=== PATIENT | female | born 1935 | race Caucasian/White ===

== ENCOUNTER → 2023-09-20 10:30 | Outpatient (REF) | payer MEDICARE, OTHER, SELFPAY | LOC: HWRCS 10:30 | PROVIDERS: ATTENDING PHYSICIAN Internal Medicine Cardiovascular Disease; FAMILY PHYSICIAN Internal Medicine | DX: I35.0 Nonrheumatic aortic (valve) stenosis (principal) | CPT/HCPCS: 93306 ==

== ENCOUNTER 2024-12-24 08:05 | Inpatient (IN) | payer MEDICARE, OTHER, SELFPAY ==
[2024-12-22] VITALS (15 sets, daily range): BP systolic 87–155; BP diastolic 44–86; BMI 26.4; BMI 27.4
[2024-12-22 07:26] LABS: Hematocrit 38.9 % (37.0-47.0); Hemoglobin 13.3 g/dL (12.0-16.0); Mean Corp Hgb Conc. 34.2 g/dL (33.0-37.0); Mean Corpuscular Volume 84.6 fL (81.0-99.0); Nucleated Red Blood Cells % 0 %; Platelet Count 153 10^3/uL (130-400); Red Cell Dist. Width 13.2 % (11.5-14.5)
[2024-12-22] MEDS: NSS 1000 IV (07:44)
[2024-12-22 07:45] LABS: ALT (SGPT) 17 U/L (0-35); AST (SGOT) 21 U/L (14-36); Albumin 4.7 g/dl (3.5-5.0); Alkaline Phosphatase 76 U/L (38-126); Blood Urea Nitrogen 25 mg/dl (7-17); Calcium 10.1 mg/dl (8.4-10.2); Carbon Dioxide 16 mmol/L (22-30); Chloride 111 mmol/L (98-107); Estimated Creatinine Clearance 35 ml/min; Glucose 158 mg/dl (70-99); Potassium 4.2 mmol/L (3.5-5.1); Sodium 139 mmol/L (135-145); Total Protein 7.3 g/dl (6.3-8.2); eGFR 54.53
[2024-12-22] MEDS: VALIUM INJECTION 2 MG IV (07:45)
[2024-12-22] MEDS: ZOFRAN 4 MG IV (07:45)
--- NOTE | 2024-12-22 07:59 | ED.GENMED ---
History of Present Illness
General
Chief Complaint: Weakness
Time Seen by Provider: 12/22/24 07:05
History of Present Illness
History of Present Illness:
89-year-old female with history of hypertension, hyperlipidemia, coronary artery disease, COPD, and chronic renal insufficiency presents to the emergency department for evaluation of abrupt onset of vertigo associated with vomiting beginning upon
awakening at approximately 3 AM today. Initially she states that symptoms 'woke her up from sleep' however after further questioning she states that she woke up and attempted to roll to her right side to the out of bed when the symptoms struck.
She states opening her eyes worsens her dizziness. Has been unrelenting since onset. No diarrhea, chest pain, or shortness of breath. No recent illnesses. Was well when going to bed last night
Past History
Past History
ED Past Medical History: CAD
ED Past Surgical History: Cardiac (cath w/ one stent)
Social History
Tobacco: Non-smoker
Living: assisted living
Review of Systems
Review of Systems
Allergies reviewed?: Yes
All Other Systems: ROS reviewed and negative except as documented in HPI and ROS
Phy Exam
Physical Exam
Physical Exam:
GEN: Well appearing, NAD, WDWN
HEENT: Oral mucosa moist, no scleral icterus, no nasal congestion
Cardiac: Regular rate and rhythm, no murmurs
Lung: No respiratory distress, no tachypnea
MSK: No gross deformity or injuries
Skin: Good color, no pallor or jaundice, no rashes
Neuro: AO x3; CN II-XII grossly intact. Globally weak x 4 extremities however symmetric with no focal deficit. Unable to appreciate nystagmus however patient refused to keep eyes open during head movement
Psych: Calm, cooperative
Course
Orders/Labs/Results
Orders:
Orders
12/22/24 07:03
Electrocardiogram (*1) Urgent
Reason for Study: Fatigue / Weakness
EKG- Treatment ONCE
12/22/24 07:18
CMP [Comprehensive Metabolic Panel] Urgent
Complete Blood Count/With Diff Urgent
12/22/24 07:31
0.9% Sodium Chloride 1000 ml [Nss] 1,000 ml IV BOLUS
Ondansetron Injectable [Zofran] 4 mg IV NOW STA
diazePAM [Valium Injection] 2 mg IV NOW STA
12/22/24 08:02
CT Head W/o Iv Contrast Urgent
Comment:
Reason For Exam: dizziness
12/22/24 11:51
Admit/Transfer Patient As Directed
Co-Sign Provider:
Level of Care: Observation services
Assign to:: Telemetry
Physician / Group: HOSPITALIST group; Claudia
Diagnosis: Dizziness likely due to peripheral vertigo
Reason for Telemetry: CVA/TIA
Date to Stop Telemetry: 12/25/24
Time to Stop Telemetry: 11:00
Reason for Hospitalization: Dizziness likely due to peripheral vertigo
Expected length of stay greater than two midnights?: Yes
ELOS- Estimated Length of Stay in days: 3
12/22/24 11:52
PRN Pain Medication Management As Directed
May give lesser potent ordered pain med per pt: Yes
preference::
Protocol:: Medication orders for pain may be administered in a
manner that supports deferring to patient preference
when the pt is:
- Requesting an ordered lesser potent pain medication.
Least to most potent pain medications are defined
as: acetaminophen < NSAID < tramadol < opioids
(morphine, oxycodone, hydromorphone).
- Requesting a lesser dose of the same medication IF
ORDERED.
- Requesting a less intrusive route of administration
if both routes are prescribed by the provider (PO <
IV).
12/22/24 12:00
Code Status As Directed
Resuscitation Status: Full Code
12/22/24 12:09
PT Consult [Pt Eval And Treat] Routine
Activity Level: Ambulate
12/22/24 12:16
NEUROLOGY CONSULT Routine
Consulting Provider: González Argueta
Was physician already notified: Yes
12/22/24 13:00
Meclizine [Antivert] 25 mg PO Q8
12/25/24 11:00
DC Protocol for Telemetry ONCE
Abnormal Lab Results
12/22/24
07:18
MPV 10.6 H fL
(7.4-10.4)
Absolute Neuts (auto) 9.2 H 10^3/uL
(1.4-6.5)
Absolute Lymphs (auto) 1.1 L 10^3/uL
(1.2-3.4)
Neutrophils % 85.4 H %
(42.2-75.2)
Lymphocytes % 9.8 L %
(20.5-51.1)
Chloride 111 H mmol/L
(98-107)
Carbon Dioxide 16 L mmol/L
(22-30)
BUN 25 H mg/dl
(7-17)
Glucose 158 H mg/dl
(70-99)
12/22/24 07:18
12/22/24 07:18
Vital Signs
Initial and Last Documented VS:
Initial Vital Signs
Temp Pulse Resp Pulse Ox
97.7 F 54 17 100
12/22/24 06:43 12/22/24 06:43 12/22/24 06:43 12/22/24 06:43
Last Documented Vital Signs
Temp Pulse Resp BP Pulse Ox
97.7 F 65 21 135/62 95
12/22/24 06:49 12/22/24 13:15 12/22/24 13:15 12/22/24 13:00 12/22/24 12:45
MDM/Problems Addressed
MDM/Problems Addressed:
89-year-old female presenting with vertiginous dizziness that began upon awakening abdominal pain this morning. On exam I am unable to appreciate obvious nystagmus however exam is challenging as patient is unable to keep her eyes open when symptoms
are severe. We did treat with IV diazepam initially which improved symptoms at rest however when attempting to stand the patient became quite vertiginous. She was also noted to be orthostatic during this time. Given the clear positional nature
and negative head CT I do not suspect acute CVA particularly given lack of associated midbrain symptoms such as visual changes, rather this is likely a peripheral vertigo given that the patient describes symptoms predominantly with rightward head
movement and a previous sensation of 'ear popping' in the right ear over the past month. Given her advanced age and the fact that she lives independently we will admit to the hospitalist service for further evaluation management
Comment
Comment:
EKG independently interpreted by me shows a sinus bradycardia at a rate of 56, significant patient motion artifact limits interpretation particularly in the anterior leads however no gross ST changes are noted
*Pulse Oximetry
SaO2: 99
Oxygen Mode of Delivery: Room air
Patient hypoxic: no
*Critical Care Note
Total Time (30-74mins, 75-104mins- exclusive of procedures): Not Applicable
ED Attending Note
-
Portions of this chart may have been created with voice recognition software.� Occasional wrong word or��sound alike� substitutions may have occurred due to the inherent limitations of voice recognition software.
Discharge Plan
Departure
Patient Disposition: Admit
Date of Disposition: 12/22/24
Time of Disposition: 10:10
Admit to: Med/Surg
Presentation/result/management discussed w/ accepting MD/DO: Hospitalist
Discharge Problem:
Vertigo
Interventions
Interventions:
*Risk Screen - Suicide Last Done: 12/22/24 06:50
*General Assessment Last Done: 12/22/24 06:50
*Neglect/Abuse Screening Last Done: 12/22/24 06:52
*ED- Fall Risk Assessment Last Done: 12/22/24 06:52
*ED COVID-19 Vaccine History Last Done: 12/22/24 06:53
ED- Cardiac Assessment Last Done: 12/22/24 06:54
ED- Neurological Assessment Last Done: 12/22/24 06:55
ED- Pulmonary Assessment Last Done: 12/22/24 06:56
--- NOTE | 2024-12-22 10:44 | W.PN.UPDATE ---
Update Note
Progress Note Update
I personally performed a history and physical exam of the patient and discussed management with the resident. I reviewed the resident's note and agree with the documented findings and plan of care HPI/CC.
89-year-old female presents with a chief complaint of vertigo. She had sudden onset vertigo at 0300 today. She had associated vomiting and ambulatory dysfunction.
Gen: NAD, AAOx3.
Eyes: EOMI, PERRLA, no scleral icterus. L-blackwell nystagmus on L-blackwell horizontal gaze
Neck: supple.
CV: RRR, +S1/S2, no m/r/g.
Resp: CTAB, no rales, wheezes, or rhonchi.
Abd: +BS, soft, NT, ND
Skin: No rashes.
Neuro: CN 2-12 intact, non-focal.
Psych: Normal mood and affect.
Lab Results
12/22/24
07:18
WBC 10.8
RBC 4.60
Hgb 13.3
Hct 38.9
MCV 84.6
MCH 28.9
MCHC 34.2
RDW 13.2
Plt Count 153
MPV 10.6 H
Abs Immat Gran (auto) 0.0
Absolute Neuts (auto) 9.2 H
Absolute Lymphs (auto) 1.1 L
Absolute Monos (auto) 0.4
Absolute Eos (auto) 0.0
Absolute Basos (auto) 0.1
Immature Gran % 0.3
Neutrophils % 85.4 H
Lymphocytes % 9.8 L
Monocytes % 3.4
Eosinophils % 0.4
Basophils % 0.7
Nucleated RBC % 0
Sodium 139
Potassium 4.2
Chloride 111 H
Carbon Dioxide 16 L
BUN 25 H
Creatinine 1.0
Estimated Creat Clear 35
eGFR 54.53
Glucose 158 H
Calcium 10.1
Total Bilirubin 0.8
AST 21
ALT 17
Alkaline Phosphatase 76
Total Protein 7.3
[address] brain:
1. No CT evidence for acute intracranial hemorrhage or transcortical infarct.
2. Moderate diffuse cerebral and cerebellar volume loss.
3. 4 mm chronic lacunar infarct in the head of the left caudate nucleus.
Acute Vertigo:
-supportive care with IVFs (wiht HCO3-), meclizine
-PT for [place]-Hallpike with Raisa if indicated
-central etiology must be ruled out, check MRI brain, c/s neuro
-monitor on tele until MRI brain completed
-non-AG met acidosis, likely due to vomiting
Other problems (cont home meds):
CAD s/p stents
HLD with statin intolerance (myalgias)
Essential HTN
h/o breast CA s/p lumpectomy at [facility] 2012
DJD
--- NOTE | 2024-12-22 11:15 | HPS.HSE ---
Family Physician
-
Family Physician: Dr. Yolanda Braswell
Chief Complaint
-
Dizziness
History of Present Illness
This is a 89-year-old female with a past medical history of hypertension, hyperlipidemia, coronary artery disease, COPD and chronic renal insufficiency who presents to the ED with dizziness. Patient had sudden onset dizziness upon awakening at 3 AM
today when she rolled to her right side to get out of bed to use the restroom. She states that her symptoms ' woke her up from her sleep.' Patient had associated nausea and 4 episodes of vomiting. Dizziness is worsened when she opens her eyes. She
felt 'cold and was shivering' at the time, but that has resolved since. No vomiting after arrival to ED, but does have intermittent nausea. She denies diarrhea, chest pain, shortness of breath or any other symptoms. No history of recent illness.
She has never had similar symptoms in the past before. [facility]
Medical History
Past Medical History
Past Medical History: Reports CAD, COPD and HTN
Additional Past Medical History:
Adrenal insufficiency, hyperlipidemia
Past Surgical History: Reports Other
Additional Past Surgical History:
Right knee replacement 2014, right hip replacement 2009, right sided lumpectomy on 2012.
Social History
Tobacco: Former Smoker (Quit at 51.)
Alcohol: Occasional
Personal:
Living: Other ([facility]
Employment: Retired
Family History
Family History: CAD (Paternal side) and Cancer (Pancreatic cancer in sister, lung cancer in brother.)
Allergies / Home Medications
Allergies reflects when Allergies were last updated in [employer].
Home Medications with original date entered in [employer]
Allergy/Medication List:
Allergies
Allergy/AdvReac Type Severity Reaction Status Date / Time
Sulfa (Sulfonamide Allergy Rash, Verified 11/20/21 10:35
Antibiotics) vomiting
suture Allergy Rash, Verified 11/20/21 10:35
infection
acetaminophen (From Percocet) AdvReac Nausea / Verified 11/20/21 10:35
Vomiting
oxycodone (From Percocet) AdvReac Nausea / Verified 11/20/21 10:35
Vomiting
Mfvueld-UMM-AsT Reductase AdvReac Myalgias Verified 11/20/21 10:35
Inhibitor
Home Medications: confirmed on 12/22/24
Vitamin D 1 tab PO DAILY Supplement 09/06/21
aspirin 81 mg tablet,delayed release 1 tab PO HS Blood clot prevention/tx 09/06/21
Calcium 250 mg (as phosphate)-vit D3 5 mcg (200 unit) chewable tablet 1 tab PO BID Supplement 09/06/21
Losartan 25 mg tablet 25 tab PO morning Blood pressure 09/06/21
Vitamin B complex 1 tab PO DAILY Supplement 09/06/21
Metoprolol succinate 25 mg tablet,extended release 24 hr 12.5 mg (1/2 x 25 mg) PO QPM DAILY 09/08/21
Rosuvastatin 10 mg tablet 10 mg PO QPM 09/08/21
Isosorbide mononitrate 30 mg extended release QPM
Review of Systems
-
History Source: Patient
Constitutional: Reports No Symptoms
EENT: Reports No Symptoms
Respiratory: Reports No Symptoms
Cardiac: Reports No Symptoms
Abdomen/GI: Reports Nausea and Vomiting
: Reports No Symptoms
Musculoskeletal: Reports No Symptoms
Skin: Reports No Symptoms
Neurological: Reports Dizzy
Endocrine: Reports No Symptoms
Hematologic/Lymphatic: Reports No Symptoms
Psych: Reports No Symptoms
Physical Exam
Vital Signs
Vital Signs
Temp Pulse Resp BP Pulse Ox
97.7 F 55 18 148/53 99
12/22/24 06:49 12/22/24 10:15 12/22/24 10:15 12/22/24 10:00 12/22/24 10:15
Physical Exam
General: Well Developed, Well Nourished, No Apparent Distress, Comfortable and Conversant
HEENT: NormoCephalic, Anicteric, Moist mucous membranes, Atraumatic, PERRLA and Other (Extraocular muscles intact, leftward nystagmus on leftward horizontal gaze)
Respiratory: Clear and Non Labored Respirations
Cardiac: S1/S2 and Regular Rhythm
GI: Soft, Non Tender, Non Distended, Normal Bowel Sounds and No Hepatosplenomegaly
Genito-urinary: Deferred by me
Musculoskeletal: No Clubbing, No Cyanosis and No Edema
Skin: Warm and Dry
Neuro: Awake, AO x 3 and No Motor Deficits
Psych: Calm and Intact Judgment/Insight
Laboratory Results
-
12/22/24 07:18
12/22/24 07:18
Laboratory Results
Total Bilirubin 0.8 mg/dl (0.2-1.3) 12/22/24 07:18
AST 21 U/L (14-36) 12/22/24 07:18
ALT 17 U/L (0-35) 12/22/24 07:18
Alkaline Phosphatase 76 U/L (38-126) 12/22/24 07:18
Data Reviewed
-
CT Scan: Report Reviewed by me and Discussed with Physician
Lab Data: Labs Reviewed by me and Discussed with Physician
Old Records: Reviewed
Impression/Plan
-
89-year-old female with a past medical history of hypertension, hyperlipidemia, coronary artery disease, COPD and chronic renal insufficiency who presents to the ED with dizziness. Patient had sudden onset dizziness upon awakening at 3 AM 12/22/24
when she rolled to her right side to get out of bed to use the restroom. She states that her symptoms ' woke her up from her sleep.' Patient had associated nausea and 4 episodes of vomiting. Dizziness is worsened when she opens her eyes.
Assessment/plan:
#Acute vertigo
#Metabolic acidosis, likely due to vomiting
�Admit for observation on telemetry until MRI brain completed
�Concern for central etiology: Will order MRI brain.
�Continue supportive care with sodium bicarbonate, meclizine
�Neurology consulted.
�PT consult for Carmelina with Raisa if indicated.
�None anion gap metabolic acidosis. Will monitor.
#Coronary artery disease, status post stents
#Hyperlipidemia with statin intolerance, history of myalgias
#Essential hypertension
�Continue aspirin 81 Mg daily, losartan 25 Mg daily, metoprolol 12.5 Mg daily, isosorbide mononitrate 30 mg.
#History of breast cancer status postlumpectomy 2012
#Degenerative joint disease
DVT prophylaxis: SCDs
CODE STATUS: DNR
--- NOTE | 2024-12-22 12:41 | CM ---
CM reviewed chart and met with pt bedside in ED. Lives alone in [place] apartment at [facility].
Independent in ADLs, personal care and ambulation at baseline, uses RW. Also has cane.
Confirms prescription coverage.
No hx VN or SNF
PCP: Yolanda Braswell
Pharmacy: [facility] at [facility]
Anticipate discharge home, CM will continue to follow for any discharge planning needs.
--- NOTE | 2024-12-22 13:27 | CON.NEURO ---
Neuro Assessment/Plan
Assessment
89 year old woman, vertigo due to left vestibular neuritis, treatment is 5 days of steroids, I will do solumedrol 250 BID while she's here and finish with prednisone 50/day unless/until vertigo is resolved.
right facial droop, slightly worsening leg weakness, suspect that this is a stroke which is independent of the vertigo.
likely acute/subacute given that the facial droop quite noticable, but of unclear duration; will load plavix 300 + 21 days of plavix; continue asa 81 and rosuvastatin 40
Consultation
Order
Date of Consultation: 12/22/24
Requesting Provider: Claudia
Reason for Consult: vertigo
Subjective/Objective
Subjective Data
Date of Service: December 22, 2024
from h&p:
This is a 89-year-old female with a past medical history of hypertension, hyperlipidemia, coronary artery disease, COPD and chronic renal insufficiency who presents to the ED with dizziness. Patient had sudden onset dizziness upon awakening at 3 AM
today when she rolled to her right side to get out of bed to use the restroom. She states that her symptoms ' woke her up from her sleep.' Patient had associated nausea and 4 episodes of vomiting. Dizziness is worsened when she opens her eyes. She
felt 'cold and was shivering' at the time, but that has resolved since. No vomiting after arrival to ED, but does have intermittent nausea. She denies diarrhea, chest pain, shortness of breath or any other symptoms. No history of recent illness.
She has never had similar symptoms in the past before. She lives in a senior independent living facility ([facility]
I noted right facial droop she says is new. right arm weakness from ortho shoulder problem, chronic. right leg weakness, chronic hip problem, shes says a little worse than baseline.
she agrees that vertigo worse with right gaze, and relieved by left gaze. no tinnitus.
Objective Data
Vital Signs
Temp Pulse Resp BP Pulse Ox
36.5 C 65 21 135/62 95
12/22/24 06:49 12/22/24 13:15 12/22/24 13:15 12/22/24 13:00 12/22/24 12:45
Lab Results
12/22/24 07:18
12/22/24 07:18
Sodium 139 mmol/L (135-145) 12/22/24 07:18
Potassium 4.2 mmol/L (3.5-5.1) 12/22/24 07:18
BUN 25 mg/dl (7-17) H 12/22/24 07:18
Glucose 158 mg/dl (70-99) H 12/22/24 07:18
Calcium 10.1 mg/dl (8.4-10.2) 12/22/24 07:18
Patient Allergies
Sulfa (Sulfonamide Antibiotics) Allergy (Verified 11/20/21 10:35)
Rash, vomiting
suture Allergy (Verified 11/20/21 10:35)
Rash, infection
acetaminophen (From Percocet) Adverse Reaction (Verified 11/20/21 10:35)
Nausea / Vomiting
oxycodone (From Percocet) Adverse Reaction (Verified 11/20/21 10:35)
Nausea / Vomiting
[id number] Reductase Inhibitor Adverse Reaction (Verified 11/20/21 10:35)
Myalgias
Physical Exam
-
awake, alert, interactive
VFF, constant right beating nystagmus regardless of gaze direction
right facial droop
right arm and leg slight down drift
Medications
-
Active Medications
Generic Name Dose Route Start Last Admin
Trade Name Freq PRN Reason Stop Dose Admin
Meclizine HCl 25 mg 12/22/24 13:00
Meclizine 25 Mg Tablet PO 01/19/25 12:59
Q8 SHERRY
Methylprednisolone Sodium Succinate 250 mg 12/22/24 13:25
Methylprednisolone Pf 125 Mg/2 Ml Vial IV 12/27/24 13:24
BID SHERRY
Home Medications
�Medication �Instructions �Recorded
aspirin 81 mg tablet,delayed 1 tab PO HS Blood clot 09/06/21
release prevention/tx
losartan 25 mg tablet 25 tab PO DAILY Blood pressure 09/06/21
vitamin B complex 1 tab PO DAILY Supplement 09/06/21
acetaminophen 500 mg tablet 500 mg PO DAILYPRN PRN mild pain 12/22/24
calcium carbonate (Calcium 600) 600 mg PO DAILY 12/22/24
carboxymethylcellulose sodium 1 % 1 drp BOTH EYES QID 12/22/24
eye liquid gel drops
cetirizine 10 mg tablet 10 mg PO HS 12/22/24
cholecalciferol (vitamin D3) 25 25 mcg PO DAILY 12/22/24
mcg (1,000 unit) tablet
isosorbide mononitrate 30 mg 30 mg PO DAILY 12/22/24
tablet,extended release 24 hr
metoprolol succinate 25 mg 12.5 mg PO HS 12/22/24
tablet,extended release 24 hr
rosuvastatin 40 mg tablet 40 mg PO QPM 12/22/24
vit C 250 mg-vit E 90 mg-zinc 40 1 tab PO BID 12/22/24
mg-copper 1 [id number]
capsule (PreserVision AREDS-2)
[2024-12-22] MEDS: SODIUM BICARBONATE 1075 MEQ IV (15:43)
[2024-12-22] MEDS: ANTIVERT 25 MG PO ×2 (15:44→23:25)
[2024-12-22] MEDS: SOLU-MEDROL PF 250 MG IV ×2 (15:45→21:12)
[2024-12-22] MEDS: IMDUR (EXTENDED RELEASE) 30 MG PO (15:55)
[2024-12-22] MEDS: CRESTOR 10 MG PO (15:57)
[2024-12-22] MEDS: TOPROL XL 12.5 MG PO (15:58)
[2024-12-22] MEDS: PLAVIX 300 MG PO (15:59)
[2024-12-22] MEDS: CRESTOR PO (17:50)
[2024-12-22] MEDS: ASPIR LOW (ENTERIC COATED) 81 MG PO (21:08)
[2024-12-22] MEDS: COZAAR 25 MG PO (21:11)
[2024-12-22] MEDS: OSCAL CAL 500 500 MG PO (21:14)
[2024-12-23] VITALS (8 sets, daily range): BP systolic 93–144; BP diastolic 45–66; PULSE 68–82; O2SAT 94
[2024-12-23] MEDS: SODIUM BICARBONATE 1075 MEQ IV (04:50)
[2024-12-23 07:53] LABS: Hematocrit 38.0 % (37.0-47.0); Hemoglobin 13.1 g/dL (12.0-16.0); Mean Corp Hgb Conc. 34.5 g/dL (33.0-37.0); Mean Corpuscular Volume 86.4 fL (81.0-99.0); Nucleated Red Blood Cells % 0 %; Platelet Count 163 10^3/uL (130-400); Red Cell Dist. Width 13.2 % (11.5-14.5)
[2024-12-23 08:17] LABS: ALT (SGPT) 14 U/L (0-35); AST (SGOT) 18 U/L (14-36); Albumin 4.1 g/dl (3.5-5.0); Alkaline Phosphatase 64 U/L (38-126); Blood Urea Nitrogen 22 mg/dl (7-17); Calcium 9.4 mg/dl (8.4-10.2); Carbon Dioxide 23 mmol/L (22-30); Chloride 108 mmol/L (98-107); Estimated Creatinine Clearance 40 ml/min; Glucose 142 mg/dl (70-99); Potassium 3.9 mmol/L (3.5-5.1); Sodium 138 mmol/L (135-145); Total Protein 6.4 g/dl (6.3-8.2); eGFR > 60.00
--- NOTE | 2024-12-23 09:46 | W.PN.UPDATE ---
Update Note
Progress Note Update
I saw and evaluated the patient. I reviewed the resident�s note and agree with findings and plan as documented in the resident�s note.
Pt reports improvement in vertigo but ambulation not at baseline.
Gen: NAD, AAOx3.
Eyes: EOMI, PERRLA, no scleral icterus
Neck: supple.
CV: remains RRR, +S1/S2, no m/r/g.
Resp: CTAB, no rales, wheezes, or rhonchi.
Abd: +BS, soft, NT, ND
Skin: No rashes.
Neuro: CN 2-12 intact, non-focal.
Psych: Normal mood and affect.
CT brain:
1. No CT evidence for acute intracranial hemorrhage or transcortical infarct.
2. Moderate diffuse cerebral and cerebellar volume loss.
3. 4 mm chronic lacunar infarct in the head of the left caudate nucleus.
Acute Vertigo due to acute L vestibular neuronitis:
-as per neuro, (quoted from Dr. Argueta's note 12/22/24) 'R facial droop, slightly worsening leg weakness, suspect that this is a stroke which is independent of the vertigo.' On my exam today I cannot confirm these physical exam findings.
-Plavix started for 21 days, no need for MRI brain as per Dr. Argueta
-check CTA head/neck
-cont steroids, meclizine PRN
-non-AG met acidosis, likely due to vomiting, resolved with IVFs with HCO3-
Other problems:
CAD s/p stents: cont ASA/statin/BB
HLD with statin intolerance (myalgias)
Essential HTN: cont BB/ARB/Imdur
h/o breast CA s/p lumpectomy at [facility] 2012
DJD
Family updated at bedside.
Dispo: likely d/c later today
[2024-12-23] MEDS: OSCAL CAL 500 500 MG PO ×2 (10:14→20:27)
[2024-12-23] MEDS: TOPROL XL 12.5 MG PO (10:14)
[2024-12-23] MEDS: IMDUR (EXTENDED RELEASE) 30 MG PO (10:14)
[2024-12-23] MEDS: ANTIVERT 25 MG PO ×3 (10:14→23:02)
[2024-12-23] MEDS: PLAVIX 75 MG PO (10:15)
[2024-12-23] MEDS: SOLU-MEDROL PF 250 MG IV ×2 (10:15→20:27)
[2024-12-23] MEDS: FLUSH (NSS) 1 FLUSH IV (10:15)
--- NOTE | 2024-12-23 13:31 | W.PN.HOSP.TC ---
Today's Communication/Plan
-
CTA head/neck pending
Continue medications as stated in assessment/plan
Assessment / Plan
Assessment / Plan
89-year-old female with a past medical history of hypertension, hyperlipidemia, coronary artery disease, COPD and chronic renal insufficiency who presents to the ED with dizziness. Patient had sudden onset dizziness upon awakening at 3 AM 12/22/24
when she rolled to her right side to get out of bed to use the restroom. She states that her symptoms ' woke her up from her sleep.' Patient had associated nausea and 4 episodes of vomiting. Dizziness is worsened when she opens her eyes.
Assessment/plan:
#Acute vertigo due to left vestibular neuritis
# Stroke
#Metabolic acidosis, likely due to vomiting
�Concern for central etiology: Neurology was consulted.
�Neurology saw patient, likely left vestibular neuritis, solumedrol 250 BID started.
�Patient has new onset right-sided facial droop, right-sided leg/arm weakness-concern for stroke. Plavix 300 Mg +21 days of Plavix started. Continue aspirin 81 Mg and rosuvastatin 40 Mg.
�CTA head and neck ordered. Results pending.
�Continue supportive care with sodium bicarbonate, meclizine
�PT following: Recommend acute rehab vs [facility] ([place], [place]).
�None anion gap metabolic acidosis, resolved after IV fluids with bicarbonate. will monitor.
#Coronary artery disease, status post stents
#Hyperlipidemia with statin intolerance, history of myalgias
#Essential hypertension
�Continue aspirin 81 Mg daily, losartan 25 Mg daily, metoprolol 12.5 Mg daily, isosorbide mononitrate 30 mg.
#History of breast cancer status postlumpectomy 2012
#Degenerative joint disease
DVT prophylaxis: SCDs
CODE STATUS: DNR
Anticipated Discharge: 24 - 48 hours
Subjective/Interval History
-
Date of Service: December 23, 2024
Patient states her dizziness has improved but she is still having trouble walking. No new complaints.
Objective Data
-
Labs:
Laboratory Results
12/23/24
07:04
WBC 7.9
Hgb 13.1
Hct 38.0
Plt Count 163
Sodium 138
Potassium 3.9
Chloride 108 H
Carbon Dioxide 23
BUN 22 H
Creatinine 0.9
Glucose 142 H
Calcium 9.4
Total Bilirubin 0.8
AST 18
ALT 14
Alkaline Phosphatase 64
Vital Signs:
Vital Signs
Temp Pulse Resp BP Pulse Ox
98.2 F 68 16 130/50 94
12/23/24 11:11 12/23/24 11:11 12/23/24 11:11 12/23/24 11:11 12/23/24 11:11
I&O
12/22/24 12/23/24 12/24/24
06:59 06:59 06:59
Intake Total 1715 / 1715
Balance 1715 / 1715
Review of Systems
-
History Source: Patient
Constitutional: Reports No Symptoms
EENT: Reports No Symptoms Reported
Respiratory: Reports No Symptoms
Cardiac: Reports No Symptoms
Abdomen/GI: Reports No Symptoms
Breast: Reports No Symptoms
Genitourinary: Reports No Symptoms
Musculoskeletal: Reports No Symptoms
Skin: Reports No Symptoms
Neuro: Reports Dizzy
Endocrine: Reports No Symptoms
Hematologic / Lymphatic: Reports No Symptoms
Physical Exam
-
General: Well Developed, Well Nourished, No Apparent Distress, Comfortable and Conversant
HEENT: Normocephalic, Atraumatic and Moist Mucous Membranes
Respiratory: Clear to Auscultation
Cardiac: Regular Rhythm and S1/S2
GI: Soft, Nontender, Nondistended, Normal Bowel Sounds and No Hepatosplenomegaly
Musculoskeletal: No Clubbing and No Cyanosis
Neuro: Awake, AO x 3 and Nonfocal/Grossly Intact
Psych: Calm
Data Reviewed
-
CT Scan: Report Reviewed by me and Discussed with Physician
Labs: Labs Reviewed by me and Discussed with Physician
Old Records: Reviewed
--- NOTE | 2024-12-23 16:17 | PTCARENOTE ---
Pt AAO x3, WEBBER; OOB to chair/ambulates to BR with assist x1-2/walker,pt very unsteady w/OOB activity; also c/o double vision when reading. Fall prec maintained; pt cooperative/compliant with calling for assistance with any activity. VSS.
Telemetry:NSR. On room air- pulse ox 96%. Abd soft, rounded, yasmine PO well. Voids in BR without difficulty. Resting in bed at present. Will continue to monitor.
--- NOTE | 2024-12-23 17:03 | W.PN.NEURO.1 ---
Today's Communication / Plan
-
21 days of DAPT
Vascular surgery and cardiology consult
Neuro Assessment/Plan
Assessment
89 year old woman, vertigo due to left vestibular neuritis, treatment is 5 days of steroids, I will do solumedrol 250 BID while she's here and finish with prednisone 50/day unless/until vertigo is resolved.
right facial droop, slightly worsening leg weakness, suspect that this is a stroke which is independent of the vertigo.
likely acute/subacute given that the facial droop quite noticeable, but of unclear duration; will load Plavix 300 + 21 days of Plavix; continue asa 81 and Rosuvastatin 10 (decreased due to statin intolerance history)
CTA head/neck imgs rev'd showing severe left carotid stenosis, >70%
I spoke to her today and quoted her an ipsilateral stroke risk from this ~17% in the next year, and a perioperative stroke risk ~6%, and a successful surgery would decrease her ipsilateral stroke risk to ~5%
Spoke with vascular surgery and cardiology, and requested that the resident consult them.
Subjective/Objective
Subjective Data
Date of Service: December 23, 2024
no vertigo at rest. still feels some diplopia and eye twitching.
Objective Data
Vital Signs
Temp Pulse Resp BP Pulse Ox
36.8 C 68 16 130/50 96
12/23/24 11:11 12/23/24 11:11 12/23/24 11:11 12/23/24 11:11 12/23/24 16:17
Lab Results
12/23/24 07:04
12/23/24 07:04
Sodium 138 mmol/L (135-145) 12/23/24 07:04
Potassium 3.9 mmol/L (3.5-5.1) 12/23/24 07:04
BUN 22 mg/dl (7-17) H 12/23/24 07:04
Glucose 142 mg/dl (70-99) H 12/23/24 07:04
Calcium 9.4 mg/dl (8.4-10.2) 12/23/24 07:04
Patient Allergies
Sulfa (Sulfonamide Antibiotics) Allergy (Verified 11/20/21 10:35)
Rash, vomiting
suture Allergy (Verified 11/20/21 10:35)
Rash, infection
acetaminophen (From Percocet) Adverse Reaction (Verified 11/20/21 10:35)
Nausea / Vomiting
oxycodone (From Percocet) Adverse Reaction (Verified 11/20/21 10:35)
Nausea / Vomiting
[id number] Reductase Inhibitor Adverse Reaction (Verified 11/20/21 10:35)
Myalgias
Physical Exam
-
awake, alert, interactive
VFF, constant right beating nystagmus regardless of gaze direction, less than yesterday
right facial droop
right arm and leg slight down drift
[2024-12-23] MEDS: CRESTOR 10 MG PO (17:40)
[2024-12-23] MEDS: ASPIR LOW (ENTERIC COATED) 81 MG PO (23:01)
[2024-12-23] MEDS: COZAAR 25 MG PO (23:02)
[2024-12-24 03:44] VITALS: BP 147/54
[2024-12-24 07:05] VITALS: BP 148/59
[2024-12-24 07:34] LABS: Hematocrit 38.2 % (37.0-47.0); Hemoglobin 12.5 g/dL (12.0-16.0); Mean Corp Hgb Conc. 32.7 g/dL (33.0-37.0); Mean Corpuscular Volume 87.0 fL (81.0-99.0); Nucleated Red Blood Cells % 0 %; Platelet Count 156 10^3/uL (130-400); Red Cell Dist. Width 13.5 % (11.5-14.5)
[2024-12-24 08:25] LABS: ALT (SGPT) 14 U/L (0-35); AST (SGOT) 18 U/L (14-36); Albumin 3.7 g/dl (3.5-5.0); Alkaline Phosphatase 53 U/L (38-126); Blood Urea Nitrogen 31 mg/dl (7-17); Calcium 9.7 mg/dl (8.4-10.2); Carbon Dioxide 27 mmol/L (22-30); Chloride 108 mmol/L (98-107); Estimated Creatinine Clearance 36 ml/min; Glucose 141 mg/dl (70-99); Potassium 4.5 mmol/L (3.5-5.1); Sodium 140 mmol/L (135-145); Total Protein 5.9 g/dl (6.3-8.2); eGFR 54.53
[2024-12-24] MEDS: SOLU-MEDROL PF 250 MG IV ×2 (08:55→19:48)
[2024-12-24] MEDS: PROTONIX 40 MG PO (08:55)
--- NOTE | 2024-12-24 09:01 | CON.VAS ---
Addendum entered and electronically signed by Dave Carpenter III, MD 12/24/24 11:36:
This patient was seen and examined in collaboration with BRADY Galo. I agree with the history and physical exam as well as the assessment and plan. I have the following additions:
Dizziness as her primary symptom
Multiple orthopedic procedures on her right shoulder, hip and knee
Denies stroke or TIA
Noted to have facial asymmetry on neuro eval this weekend.
Patient unaware of any current history or previous history of facial asymmetry
She believes her extremity strength is at baseline (multiple procedures on her right side that she says contributes to chronic weakness on the right)
CT angiogram performed as part of this workup and demonstrated calcified carotid plaque with a reported stenosis of 70% on the left.
On physical exam she is alert and oriented
There is no facial asymmetry
Strength is mildly decreased on the right upper and lower versus the left
CT angiogram was personally reviewed and three-dimensional reconstructions performed (see below). There is calcified plaque at the carotid bulb on the left extending into the proximal internal carotid artery however by my direct measurement there
is less than 50% stenosis at this location. I disagree with radiology report.
Recommend obtaining carotid duplex today
MRI of the brain for further evaluation
Spoke with patient and her daughter Vee in [facility]
Signed:
Dave Carpenter III, MD
Vascular Surgery
[facility]
Original Note:
Consultation
Consultation Request
Date/Time Consultation Performed: 12/24/24 0800
Requesting Provider: Hospitalist
Performing Provider: Liliana Ocampo NP-C for Dave Carpenter III, MD
Reason for Consultation: Left carotid stenosis
Medical History
-
Chief Complaint: Vetigo with nausea and vomiting
History of Present Illness:
This is an 89 year old female with significant past medical history of CAD, HTN, COPD, diplopia, renal insufficiency, and hyperlipidemia who presented to [facility] ED on 12/22/2024 after she woke up abruptly that morning at 3AM with
vertigo and accompanying vomiting. She states she waited 2 hours to see if symptoms would subside but when they persisted and she could not get out of bed she activated her 'help line' at the assisted living community and was brought to ED via EMS.
She denies accompanying facial droop, dysarthria, aphasia, loss of consciousness, unilateral weakness, or vision loss. Currently, she feels slight improvement as she can set up but endorses continued ambulatory dysfunction. She endorses multiple
orthopedic surgeries at [facility] and [facility] with osteoarthritis, which has left her 'weaker' to the right side for years. She endorses pain is what limits her strength. She denies any recent stroke like symptoms or change to baseline strength. Denies
history of stroke. Currently with no complaints, sitting comfortably eating breakfast. No facial droop appreciated.
Past Medical History
Past Medical History: CAD, COPD, HTN and Other (renal insufficiency, hyperlipidemia)
Past Surgical History: Other (Right knee replacement 2014, right hip replacement 2009, right sided lumpectomy on 2012.)
Social History
Tobacco: Former Smoker (Quit at age 51)
Alcohol: Occasional
Drug: None
Living: Assisted Living (Senior independent living facility: [facility])
Allergies / Home Medications
Allergy/AdvReac Type Severity Reaction Status Date / Time
Sulfa (Sulfonamide Allergy Rash, Verified 11/20/21 10:35
Antibiotics) vomiting
suture Allergy Rash, Verified 11/20/21 10:35
infection
acetaminophen (From Percocet) AdvReac Nausea / Verified 11/20/21 10:35
Vomiting
oxycodone (From Percocet) AdvReac Nausea / Verified 11/20/21 10:35
Vomiting
Cerjysz-UHS-IrE Reductase AdvReac Myalgias Verified 11/20/21 10:35
Inhibitor
�Medication �Instructions �Recorded �Confirmed �Type
aspirin 81 mg tablet,delayed 1 tab PO HS Blood clot 09/06/21 12/22/24 History
release prevention/tx
losartan 25 mg tablet 25 tab PO DAILY Blood pressure 09/06/21 12/22/24 History
vitamin B complex 1 tab PO DAILY Supplement 09/06/21 12/22/24 History
acetaminophen 500 mg tablet 500 mg PO DAILYPRN PRN mild pain 12/22/24 12/22/24 History
calcium carbonate (Calcium 600) 600 mg PO DAILY Supplement 12/22/24 12/22/24 History
carboxymethylcellulose sodium 1 % 1 drp BOTH EYES QID Eye Condition 12/22/24 12/22/24 History
eye liquid gel drops
cetirizine 10 mg tablet 10 mg PO HS Allergies 12/22/24 12/22/24 History
cholecalciferol (vitamin D3) 25 25 mcg PO DAILY Supplement 12/22/24 12/22/24 History
mcg (1,000 unit) tablet
isosorbide mononitrate 30 mg 30 mg PO DAILY Blood Pressure 12/22/24 12/22/24 History
tablet,extended release 24 hr
metoprolol succinate 25 mg 12.5 mg PO HS Blood Pressure 12/22/24 12/22/24 History
tablet,extended release 24 hr
rosuvastatin 40 mg tablet 40 mg PO QPM High Cholesterol 12/22/24 12/22/24 History
vit C 250 mg-vit E 90 mg-zinc 40 1 tab PO BID Eye Condition 12/22/24 12/22/24 History
mg-copper 1 [id number]
capsule (PreserVision AREDS-2)
Review of Systems
-
History Source: Patient
Constitutional: Reports No Symptoms
EENT: Reports No Symptoms
Respiratory: Reports No Symptoms
Cardiac: Reports No Symptoms
Abdomen/GI: Reports No Symptoms
: Reports No Symptoms
Musculoskeletal: Reports No Symptoms
Skin: Reports No Symptoms
Neurological: Reports Dizzy (vertigo with nausea and vomiting )
Physical Exam
Vital Signs
Temp Pulse Resp BP Pulse Ox
97.9 F 47 18 147/54 94
12/24/24 03:44 12/24/24 03:44 12/24/24 03:44 12/24/24 03:44 12/24/24 03:44
Lab Results
12/24/24 07:14
12/24/24 07:14
Physical Exam
General: No Apparent Distress
HEENT: Normocephalic, Anicteric and Atraumatic
Respiratory: Non Labored Respirations
Cardiac: Negative JVD
GI: Soft, Non Tender and Non Distended
Musculoskeletal: No Edema
Skin: Warm
Neuro: AO x 3 and Other (No facial droop. RUE and RLE slightly weaker in comparison to LUE and LLE, however patient endorses multiple orthopedic surgeries that have caused increased pain and she notes she does not utilize full strength due to pain
limitations, no drift appreciated )
Psych: Calm
Assessment / Plan
-
Assessment: 89 year old female who presented to [facility] ED on 12/22/2024 reporting acute onset of vertigo with accompanying nausea and vomiting.
Plan:
Unclear if this is considered a symptomatic carotid stenosis, would consider MRI for confirmation of acute/subacute stroke given no facial droop appreciated on exam by our team today and patient endorsing no changes to strength. Will review with
neurology team.
Carotid ultrasound for additional information to define degree of stenosis at left carotid.
Final surgical plan per attending Dr. Dave Carpenter III
Patient seen and exained with attending, Dr. Dave Carpenter III who agrees with above plan.
[2024-12-24] MEDS: TOPROL XL 12.5 MG PO (09:04)
[2024-12-24] MEDS: IMDUR (EXTENDED RELEASE) 30 MG PO (09:04)
[2024-12-24] MEDS: OSCAL CAL 500 500 MG PO ×2 (09:04→19:48)
[2024-12-24] MEDS: PLAVIX 75 MG PO (09:06)
[2024-12-24] MEDS: ANTIVERT 25 MG PO (09:06)
--- NOTE | 2024-12-24 09:16 | CON.CAR ---
Addendum entered and electronically signed by David Villagomez MD 12/24/24 19:24:
89-year-old woman with vertigo and vomiting and ataxia, without acute findings on head CT, currently refusing MRI
PMH: Syncope, suspected vasovagal/hypotensive,mild aortic stenosis by echo August 2023, CAD with ostial RCA PCI, 3 x 16 mm Xience stent 2017, Xience stent to mid circumflex and ostial RCA August 2021, cervical disc disease with ELIZA, history of breast
cancer 2012
PSH: ELIZA, right total knee, lumpectomy right breast
Current meds: Plavix 75 mg a day, aspirin 81 mg a day, losartan 25 mg/day, metoprolol ER 12.5 mg daily, rosuvastatin 10 mg a day, isosorbide 30 mg a day, methylprednisolone, calcium, pantoprazole
148/59, pulse 77, respiratory rate 18, afebrile, saturations 97%, pleasant, son at bedside, loquacious, head neck exam unremarkable, lungs are clear, aortic stenosis murmur soft MR murmur, carotid bruits, ataxia, unable to stand upright, would fall
if not heavy 1 person assist, no focal weakness however, complaining of diplopia but not currently vertigo
CT of aortic arch severe calcific atherosclerotic plaque in the arch, proximal subclavian on the left is 50 to 70%, right proximal internal carotid less than 50%, proximal left internal carotid greater than 70%, patent vertebrals
ECG: Sinus bradycardia, 56 bpm
White count is 13.2, hemoglobin is 12.5, BUN/creatinine are 31 and 1, potassium is 4.1
Impression:
Vertigo/ataxia
Suspected subacute/acute stroke
Left vestibular neuritis per neurology
Cerebrovascular disease with greater than 70% left carotid stenosis
Aortic stenosis, mild to moderate
CAD history PCI
History of remote breast cancer
Degenerative disc disease
Right shoulder surgery
DNR
Plan:
Overall cardiac status is stable. If patient did have stroke as per neurology, suspect atheroembolic rather than cardioembolic.
Given DNR status, presumably care strategy will be conservative. At present would not aggressively pursue cardioembolic source, though echocardiography would be reasonable, and I would not object to site monitor if recommended by neurology. For
now continue telemetry.
Continue statin therapy.
Antiplatelet regimen per neurology.
Original Note:
Consultation
Consultation Request
Date/Time Consultation Requested: 12/23/2024 at 1638
Date/Time Consultation Performed: 12/24/2024 at 1000
Requesting Provider: Dr. Whatley
Performing Provider: Dr. ANDI Villagoemz
Reason for Consultation: Possible CVA possible atrial arrhythmia
Medical History
-
History of Present Illness:
Patient came to the ER early Tuesday morning with complaints of vertigo and was admitted, following admission had a right sided facial droop and there is now concern for CVA and cardiology was consulted for their input on the situation. Patient
says she went to bed feeling fine on Tuesday night and then awoke at about 3:00 in the morning on Tuesday with sudden vertigo. Patient came to the ER and was seen by neurology who felt that her vertigo represented left sided vestibular neuritis.
Separately neurology observed a right sided facial droop and had concern for CVA. Patient did not have an MRI in part because she reports having hardware in her right shoulder following a traumatic fall years ago and that she recalls being told
that her hardware was not MRI safe and that she should never have an MRI. Patient was started on Plavix in addition to her aspirin. Cardiology is now consulted in the event that the patient did in fact have a CVA and whether or not there would be
a cardioembolic source for this. On CTA of the head and neck there was a greater than 70% LICA stenosis called, the patient has since been seen by vascular surgery and they feel that is an overestimation and a carotid ultrasound is pending.
Patient has no history of atrial arrhythmia.
PMH:
HTN
Hyperlipidemia
CAD
s/p 3 mm Xience LARRY to the ostial RCA 2017
NSTEMI with Xience LARRY to the mid circumflex and Xience LARRY to the ostial RCA 09/07/2021
Breast cancer with lumpectomy manage at [facility] 2012
h/o traumatic fall with right shoulder fracture and residual orthopedic hardware, unclear if MRI safe
Past Medical History
Past Medical History: Other (In HPI)
Past Surgical History: Gynecological and Orthopedic
Social History
Tobacco: Non-Smoker
Alcohol: None
Drug: None
Living: Alone (Independent living at [facility])
Family History
Family History: CAD
Allergies / Home Medications
Allergy/AdvReac Type Severity Reaction Status Date / Time
Sulfa (Sulfonamide Allergy Rash, Verified 11/20/21 10:35
Antibiotics) vomiting
suture Allergy Rash, Verified 11/20/21 10:35
infection
acetaminophen (From Percocet) AdvReac Nausea / Verified 11/20/21 10:35
Vomiting
oxycodone (From Percocet) AdvReac Nausea / Verified 11/20/21 10:35
Vomiting
Qzephrs-[id number] Reductase AdvReac Myalgias Verified 11/20/21 10:35
Inhibitor
�Medication �Instructions �Recorded �Confirmed �Type
aspirin 81 mg tablet,delayed 1 tab PO HS Blood clot 09/06/21 12/22/24 History
release prevention/tx
losartan 25 mg tablet 25 tab PO DAILY Blood pressure 09/06/21 12/22/24 History
vitamin B complex 1 tab PO DAILY Supplement 09/06/21 12/22/24 History
acetaminophen 500 mg tablet 500 mg PO DAILYPRN PRN mild pain 12/22/24 12/22/24 History
calcium carbonate (Calcium 600) 600 mg PO DAILY Supplement 12/22/24 12/22/24 History
carboxymethylcellulose sodium 1 % 1 drp BOTH EYES QID Eye Condition 12/22/24 12/22/24 History
eye liquid gel drops
cetirizine 10 mg tablet 10 mg PO HS Allergies 12/22/24 12/22/24 History
cholecalciferol (vitamin D3) 25 25 mcg PO DAILY Supplement 12/22/24 12/22/24 History
mcg (1,000 unit) tablet
isosorbide mononitrate 30 mg 30 mg PO DAILY Blood Pressure 12/22/24 12/22/24 History
tablet,extended release 24 hr
metoprolol succinate 25 mg 12.5 mg PO HS Blood Pressure 12/22/24 12/22/24 History
tablet,extended release 24 hr
rosuvastatin 40 mg tablet 40 mg PO QPM High Cholesterol 12/22/24 12/22/24 History
vit C 250 mg-vit E 90 mg-zinc 40 1 tab PO BID Eye Condition 12/22/24 12/22/24 History
mg-copper 1 [id number]
capsule (PreserVision AREDS-2)
Review of Systems
-
History Source: Patient and Family (Daughter Vee by phone)
All other systems: Negative unless noted
Physical Exam
Vital Signs
Temp Pulse Resp BP Pulse Ox
98.1 F 77 18 148/59 97
12/24/24 07:05 12/24/24 09:04 12/24/24 07:05 12/24/24 09:04 12/24/24 07:05
GEN: NAD, AAO x3
HEENT: EOMI, MMM, no obvious facial droop
LUNGS: RA. CTA B/L, no wheeze
CV: SR on telemetry. Reg, S1/S2, 2/6 BSM
ABD: soft, BS+, NT, ND
EXT: No edema B/L
NEURO: Gross non-focal
SKIN: No rash
Lab Results
12/24/24 07:14
12/24/24 07:14
Impression / Plan
-
PCP Dr. Yolanda Braswell
Cardiology: Dr. Cruz
Impression:
Admitted with abrupt onset vertigo 12/22/2024
Vestibular neuritis
Possible CVA with observed right sided facial droop by neurology and nursing that then resolved 12/22/2024
L ICA disease by CT scan 12/22/2024
HTN
Hyperlipidemia
CAD
s/p 3 mm Xience LARRY to the ostial RCA 2017
NSTEMI with Xience LARRY to the mid circumflex and Xience LARRY to the ostial RCA 09/07/2021
Breast cancer with lumpectomy manage at [facility] 2012
h/o traumatic fall with right shoulder fracture and residual orthopedic hardware, unclear if MRI safe
Echo 09/20/2023: EF 55 to 60%, mild concentric LVH, no WMA, mild peak/mean 27/17 mmHg with BRENDAN 1.06 cm sq, compared to echo 08/2021 there is no significant change
Echo 12/24/24: Study pending
Plan:
-Patient came to the ER early Tuesday morning with complaints of vertigo and was admitted, following admission had a right sided facial droop and there is now concern for CVA and cardiology was consulted for their input on the situation. Patient
says she went to bed feeling fine on Tuesday night and then awoke at about 3:00 in the morning on Tuesday with sudden vertigo. Patient came to the ER and was seen by neurology who felt that her vertigo represented left sided vestibular neuritis.
Separately neurology observed a right sided facial droop and had concern for CVA. Patient did not have an MRI in part because she reports having hardware in her right shoulder following a traumatic fall years ago and that she recalls being told
that her hardware was not MRI safe and that she should never have an MRI. Patient was started on Plavix in addition to her aspirin. Cardiology is now consulted in the event that the patient did in fact have a CVA and whether or not there would be
a cardioembolic source for this. On CTA of the head and neck there was a greater than 70% LICA stenosis called, the patient has since been seen by vascular surgery and they feel that is an overestimation and a carotid ultrasound is pending.
Patient has no history of atrial arrhythmia.
-ECG reviewed by me is SR without acute ST changes
-Patient had a right sided facial droop seen by neurology and also reported by nursing on 12/22/2024, this resolved without specific intervention and no additional imaging was performed. Patient reports that she cannot have MRI due to previous
hardware in her right shoulder and the patient's daughter who is a radiation technologist in [place] shares that concern. At this point the patient is not scheduled to have an MRI, but not clear if there is a role for serial CT scan. Await input
from neurology for today.
-From a cardiac standpoint is not clear that the patient had a stroke. If patient had a stroke there is also some concern that her right sided facial droop could be linked to her left carotid disease, although vascular surgery believes the L ICA
lesion is overestimated on CT imaging.
-There is no history of atrial arrhythmia and no atrial arrhythmia on more than 48 hours of telemetry monitoring thus far. If there is definitive evidence of a CVA then would recommend a 14-day outpatient ambulatory site monitor to look for
atrial arrhythmia.
-Check echo, ordered by me.
-Check CVE. LDL was 63 in 12/2023. Patient takes Crestor 40 mg daily. Given history of CAD and now with possible carotid disease and CVA would like to get LDL closer to 55.
--- NOTE | 2024-12-24 12:02 | W.PN.HOSP.TC ---
Today's Communication/Plan
-
monitor vitals
see plan
mri if needed per neurology
check US carotid
cw DAPT
pt
Assessment / Plan
Assessment / Plan
89-year-old female with a past medical history of hypertension, hyperlipidemia, coronary artery disease, COPD and chronic renal insufficiency who presents to the ED with dizziness. Patient had sudden onset dizziness upon awakening at 3 AM 12/22/24
when she rolled to her right side to get out of bed to use the restroom. She states that her symptoms ' woke her up from her sleep.' Patient had associated nausea and 4 episodes of vomiting. Dizziness is worsened when she opens her eyes.
Assessment/plan:
#Acute vertigo due to left vestibular neuritis
# Stroke
#Metabolic acidosis, likely due to vomiting, resolved
�Concern for central etiology: Neurology was consulted.
�Neurology saw patient, likely left vestibular neuritis, solumedrol 250 BID started. On discharge 50 mg prednisone per day. Total treatment 5 days of steroid per neuro
�Patient has new onset right-sided facial droop, right-sided leg/arm weakness-concern for stroke. Plavix 300 Mg +21 days of Plavix started. Continue aspirin 81 Mg and rosuvastatin 40 Mg.
Per neurology, no MRI needed
CT with 4mm chronic lacunar infarct in the head of the left caudate nucleus
�PT following: Recommend acute rehab vs [facility].
�None anion gap metabolic acidosis, resolved after IV fluids with bicarbonate. will monitor.
CT with severe left proximal carotid stenosis. Ultrasound pending. Vascular surgery following
cardiology also consulted
#Coronary artery disease, status post stents
#Hyperlipidemia with statin intolerance, history of myalgias
#Essential hypertension
�Continue aspirin 81 Mg daily, losartan 25 Mg daily, metoprolol 12.5 Mg daily, isosorbide mononitrate 30 mg.
#History of breast cancer status postlumpectomy 2012
#Degenerative joint disease
DVT prophylaxis: SCDs
CODE STATUS: DNR
General: Well Developed, Well Nourished, No Apparent Distress, Comfortable and Conversant
HEENT: Normocephalic, Atraumatic and Moist Mucous Membranes
Respiratory: Clear to Auscultation
Cardiac: Regular Rhythm and S1/S2
GI: Soft, Nontender, Nondistended, Normal Bowel Sounds
Neuro: Awake, AO x 3 and Nonfocal/Grossly Intact
Psych: Calm
Anticipated Discharge: 24 - 48 hours
Subjective/Interval History
-
Date of Service: December 24, 2024
denies pain
Objective Data
-
Labs:
Laboratory Results
12/24/24
07:14
WBC 13.2 H
Hgb 12.5
Hct 38.2
Plt Count 156
Sodium 140
Potassium 4.5
Chloride 108 H
Carbon Dioxide 27
BUN 31 H
Creatinine 1.0
Glucose 141 H
Calcium 9.7
Total Bilirubin 0.4
AST 18
ALT 14
Alkaline Phosphatase 53
Vital Signs:
Vital Signs
Temp Pulse Resp BP Pulse Ox
98.1 F 77 18 148/59 97
12/24/24 07:05 12/24/24 09:04 12/24/24 07:05 12/24/24 09:04 12/24/24 11:53
I&O
12/23/24 12/24/24 12/25/24
06:59 06:59 06:59
Intake Total 1715 / 1715 1460 / 1460
Balance 1715 / 1715 1460 / 1460
[2024-12-24 15:15] VITALS: BP 149/74
[2024-12-24 15:51] VITALS: BP 151/64; PULSE 52; O2SAT 94
[2024-12-24 16:07] LABS: HDL Cholesterol 58 mg/dl; LDL Cholesterol, Calculated 69 mg/dl; Very Low Density Lipoprotein 14 mg/dl (0-30)
--- NOTE | 2024-12-24 16:21 | CM ---
Chart reviewed. Therapy rec acute rehab vs SNF. Patient would like to go to the [facility] since she resides at [facility]
Patient LOC changed to IP today
Reviewed eligibility for [employer] waiver w/ Kelsie. Patient is not a [employer] member and will not be able to use SNF waiver
[2024-12-24] MEDS: CRESTOR 10 MG PO (17:03)
[2024-12-24 19:18] VITALS: BP 130/57
[2024-12-24] MEDS: COZAAR 25 MG PO (19:49)
[2024-12-24] MEDS: ASPIR LOW (ENTERIC COATED) 81 MG PO (19:49)
--- NOTE | 2024-12-24 20:21 | W.PN.NEURO.1 ---
Today's Communication / Plan
-
right facial droop now resolved. minor stroke vs TIA
if not a surgical candidate, then I would Rx ASA 325 lifelong, and 90 days of plavix for large vessel disease (trend towards improvement and Rosuvastatin 10 (statin intolerance history)
Neuro Assessment/Plan
Assessment
89 year old woman, vertigo due to left vestibular neuritis, treatment is 5 days of steroids, I will do solumedrol 250 BID while she's here and finish with prednisone 50/day unless/until vertigo is resolved.
right facial droop, slightly worsening leg weakness, suspect that this is a stroke which is independent of the vertigo.
CTA head/neck imgs rev'd showing severe left carotid stenosis, >70%
Today the facial droop I observed the past 21 days is now resolved. certainly could be that this is a TIA
patient hesitant for MRI due to orthopedic hardware in her left shoulder placed in 2017, though I reassured that modern orthopedic hardware is MRI safe; nor do I think an MRI would change the decision making.
spoke with Dr Carpenter of Vascular s[facility], believes that CTA is over estimating degree of stenosis, getting ultrasound.
if not a surgical candidate, then I would Rx ASA 325 lifelong, and 90 days of plavix for large vessel disease (trend towards improvement and Rosuvastatin 10 (statin intolerance history)
Subjective/Objective
Subjective Data
Date of Service: December 24, 2024
strength at baseline.
right facial droop has resolved.
Objective Data
Vital Signs
Temp Pulse Resp BP Pulse Ox
36.6 C 80 16 130/57 95
12/24/24 19:18 12/24/24 19:18 12/24/24 19:18 12/24/24 19:18 12/24/24 19:18
Lab Results
12/24/24 07:14
12/24/24 07:14
Sodium 140 mmol/L (135-145) 12/24/24 07:14
Potassium 4.5 mmol/L (3.5-5.1) 12/24/24 07:14
BUN 31 mg/dl (7-17) H 12/24/24 07:14
Glucose 141 mg/dl (70-99) H 12/24/24 07:14
Calcium 9.7 mg/dl (8.4-10.2) 12/24/24 07:14
LDL Cholesterol, Calc 69 mg/dl 12/24/24 07:14
Patient Allergies
Sulfa (Sulfonamide Antibiotics) Allergy (Verified 11/20/21 10:35)
Rash, vomiting
suture Allergy (Verified 11/20/21 10:35)
Rash, infection
acetaminophen (From Percocet) Adverse Reaction (Verified 11/20/21 10:35)
Nausea / Vomiting
oxycodone (From Percocet) Adverse Reaction (Verified 11/20/21 10:35)
Nausea / Vomiting
Kbnnlut-DDL-RyB Reductase Inhibitor Adverse Reaction (Verified 11/20/21 10:35)
Myalgias
[2024-12-24 23:44] VITALS: BP 127/56
[2024-12-25] VITALS (7 sets, daily range): BP systolic 119–159; BP diastolic 53–68
--- NOTE | 2024-12-25 07:24 | W.PN.UPDATE ---
Update Note
Progress Note Update
Carotid duplex personally reviewed.
Velocity profile consistent with less than 50% stenosis bilaterally which is consistent with my interpretation of the CTA.
Medical therapy for arterial disease risk factors
F/U with me in the office
Call with questions/concerns
[id number]
[2024-12-25 07:56] LABS: Hematocrit 37.2 % (37.0-47.0); Hemoglobin 12.4 g/dL (12.0-16.0); Mean Corp Hgb Conc. 33.3 g/dL (33.0-37.0); Mean Corpuscular Volume 88.4 fL (81.0-99.0); Nucleated Red Blood Cells % 0 %; Platelet Count 155 10^3/uL (130-400); Red Cell Dist. Width 13.6 % (11.5-14.5)
[2024-12-25 08:14] LABS: ALT (SGPT) 14 U/L (0-35); AST (SGOT) 16 U/L (14-36); Albumin 3.5 g/dl (3.5-5.0); Alkaline Phosphatase 49 U/L (38-126); Blood Urea Nitrogen 32 mg/dl (7-17); Calcium 9.1 mg/dl (8.4-10.2); Carbon Dioxide 27 mmol/L (22-30); Chloride 107 mmol/L (98-107); Estimated Creatinine Clearance 36 ml/min; Glucose 132 mg/dl (70-99); Potassium 4.5 mmol/L (3.5-5.1); Sodium 139 mmol/L (135-145); Total Protein 5.7 g/dl (6.3-8.2); eGFR 54.53
[2024-12-25] MEDS: PROTONIX 40 MG PO (09:14)
[2024-12-25] MEDS: IMDUR (EXTENDED RELEASE) 30 MG PO (09:15)
[2024-12-25] MEDS: PLAVIX 75 MG PO (09:15)
[2024-12-25] MEDS: OSCAL CAL 500 500 MG PO ×2 (09:15→20:03)
[2024-12-25] MEDS: TOPROL XL 12.5 MG PO (09:15)
[2024-12-25] MEDS: SOLU-MEDROL PF 250 MG IV ×2 (09:16→20:03)
[2024-12-25] MEDS: FLUSH (NSS) 1 FLUSH IV (09:16)
--- NOTE | 2024-12-25 12:17 | W.PN.CARDCBS ---
Addendum entered and electronically signed by Yusuf Hartman MD 12/25/24 14:38:
I saw and examined the patient.
The Rivet Catcher's note was reviewed and I agree with the note.
Comment: GEN: No distress, awake, Ox3
HEENT: supple, anicteric, mmm
LUNGS: CTA, no wheezes/rales
CV: Reg, S1/S2, 1/6 syst LSB, no gallop
ABD: soft, BS+, NT/ND
EXT: No edema
NEURO: Gross non-focal
SKIN: No rash
PLan:
Echo with preserved ejection fraction and mild to moderate aortic stenosis. No clear cardiac source of emboli.
Continue medical therapy for carotid artery disease.
Continue Crestor, aspirin, Plavix, metoprolol, and losartan.
Continue medical therapy for CAD. Continue aspirin, metoprolol, rosuvastatin, and Imdur. Increase Crestor back to 40 mg daily.
Okay for discharge.
Original Note:
Today's Communication / Plan
-
Cardiology f/u arranged
Impression / Plan
-
PCP Dr. Yolanda Braswell
Cardiology: Dr. Cruz
Impression:
Admitted with abrupt onset vertigo 12/22/2024
Vestibular neuritis
Possible CVA with observed right sided facial droop by neurology and nursing that then resolved 12/22/2024
L ICA disease by CT scan 12/22/2024
HTN
Hyperlipidemia
CAD
s/p 3 mm Xience LARRY to the ostial RCA 2017
NSTEMI with Xience LARRY to the mid circumflex and Xience LARRY to the ostial RCA 09/07/2021
Breast cancer with lumpectomy manage at [facility] 2012
h/o traumatic fall with right shoulder fracture and residual orthopedic hardware, unclear if MRI safe
Echo 09/20/2023: EF 55 to 60%, mild concentric LVH, no WMA, mild peak/mean 27/17 mmHg with BRENDAN 1.06 cm sq, compared to echo 08/2021 there is no significant change
Echo 12/25/24: EF 55 to 60%, normal RV size and function, mild to moderate peak/mean 31/17 mmHg with BRENDAN 1.1-1.2 cm sq
Plan:
-Patient manage as left vestibular neuritis on admission and there was also concern for possible CVA with observed right sided facial droop, but no corresponding imaging changes on CT head. Patient cannot have MRI due to previous hardware in her
right shoulder.
-No evidence of atrial arrhythmia on my review of telemetry 12/25/2024
-Echo reviewed and summarized above by me on 12/25/2024, EF preserved with mild to moderate
-Vascular surgery documentation reviewed by me, there is no evidence of hemodynamically significant ICA stenosis
-LDL was 69 on my review of labs 12/25/2024. Patient takes Crestor 40 mg daily.
HPI: Patient came to the ER early Tuesday morning with complaints of vertigo and was admitted, following admission had a right sided facial droop and there is now concern for CVA and cardiology was consulted for their input on the situation.
Patient says she went to bed feeling fine on Tuesday night and then awoke at about 3:00 in the morning on Tuesday with sudden vertigo. Patient came to the ER and was seen by neurology who felt that her vertigo represented left sided vestibular
neuritis. Separately neurology observed a right sided facial droop and had concern for CVA. Patient did not have an MRI in part because she reports having hardware in her right shoulder following a traumatic fall years ago and that she recalls
being told that her hardware was not MRI safe and that she should never have an MRI. Patient was started on Plavix in addition to her aspirin. Cardiology is now consulted in the event that the patient did in fact have a CVA and whether or not
there would be a cardioembolic source for this. On CTA of the head and neck there was a greater than 70% LICA stenosis called, the patient has since been seen by vascular surgery and they feel that is an overestimation and a carotid ultrasound is
pending. Patient has no history of atrial arrhythmia.
Progress Note - Material Control Associate
Subjective
Date of Service: December 25, 2024
Feels well, no headache
Objective
Labs:
12/25/24 07:20
12/25/24 07:20
Labs
Hgb 12.4 g/dL (12.0-16.0) 12/25/24 07:20
Hct 37.2 % (37.0-47.0) 12/25/24 07:20
Plt Count 155 10^3/uL (130-400) 12/25/24 07:20
Sodium 139 mmol/L (135-145) 12/25/24 07:20
Potassium 4.5 mmol/L (3.5-5.1) 12/25/24 07:20
BUN 32 mg/dl (7-17) H 12/25/24 07:20
Creatinine 1.0 mg/dL (0.6-1.0) 12/25/24 07:20
Glucose 132 mg/dl (70-99) H 12/25/24 07:20
Vital Signs and I&O:
Vital Signs
Temp Pulse Resp BP Pulse Ox
97.6 F 61 18 139/61 97
12/25/24 11:25 12/25/24 11:25 12/25/24 11:25 12/25/24 11:25 12/25/24 11:25
Vital Signs
Temp Pulse Resp BP Pulse Ox
97.6 F 61 18 139/61 97
12/25/24 11:25 12/25/24 11:25 12/25/24 11:25 12/25/24 11:25 12/25/24 11:25
Intake & Output
12/23/24 12/24/24 12/25/24 12/26/24
06:59 06:59 06:59 06:59
Intake Total 1715 / 1715 1460 / 1460 120 / 120
Balance 1715 / 1715 1460 / 1460 120 / 120
Physical Exam
Physical Exam
GEN: NAD, AAO x3
LUNGS: RA. No wheeze
CV: SR on telemetry.
--- NOTE | 2024-12-25 13:19 | W.PN.HOSP.TC ---
Today's Communication/Plan
-
Monitor vital signs and see plan
Defer to neurology regarding dosage of aspirin and Plavix and duration
Discussed with case liner, who [facility]
pt/ot
Assessment / Plan
Assessment / Plan
89-year-old female with a past medical history of hypertension, hyperlipidemia, coronary artery disease, COPD and chronic renal insufficiency who presents to the ED with dizziness. Patient had sudden onset dizziness upon awakening at 3 AM 12/22/24
when she rolled to her right side to get out of bed to use the restroom. She states that her symptoms ' woke her up from her sleep.' Patient had associated nausea and 4 episodes of vomiting. Dizziness is worsened when she opens her eyes.
Assessment/plan:
#Acute vertigo due to left vestibular neuritis
# Stroke
#Metabolic acidosis, likely due to vomiting, resolved
�Concern for central etiology: Neurology was consulted.
�Neurology saw patient, likely left vestibular neuritis, solumedrol 250 BID started. On discharge 50 mg prednisone per day. Total treatment 5 days of steroid per neuro. last day 12/26
�Patient has new onset right-sided facial droop, right-sided leg/arm weakness-concern for stroke. Continue aspirin 81 Mg and rosuvastatin 40 Mg.
Per neurology, no MRI needed
CT with 4mm chronic lacunar infarct in the head of the left caudate nucleus
�PT following: Recommend acute rehab vs [facility]. Patient is interested in acute rehab
�None anion gap metabolic acidosis, resolved after IV fluids with bicarbonate. will monitor.
CT with severe left proximal carotid stenosis. Ultrasound shows less than 50% stenosis bilaterally. Vascular surgery recommended outpatient follow-up. Given large vessel disease neurology recommending 90 days of Plavix
cardiology also consulted
#Coronary artery disease, status post stents
#Hyperlipidemia with statin intolerance, history of myalgias
#Essential hypertension
�Continue aspirin, losartan 25 Mg daily, metoprolol 12.5 Mg daily, isosorbide mononitrate 30 mg.
#History of breast cancer status postlumpectomy 2012
#Degenerative joint disease
DVT prophylaxis: SCDs
CODE STATUS: DNR
General: Well Developed, Well Nourished, No Apparent Distress, Comfortable and Conversant
HEENT: Normocephalic, Atraumatic and Moist Mucous Membranes
Respiratory: Clear to Auscultation
Cardiac: Regular Rhythm and S1/S2
GI: Soft, Nontender, Nondistended, Normal Bowel Sounds
Neuro: Awake, AO x 3 and Nonfocal/Grossly Intact
Psych: Calm
Anticipated Discharge: Within 24 hours
Subjective/Interval History
-
Date of Service: December 25, 2024
denies pain
Objective Data
-
Labs:
Laboratory Results
12/25/24
07:20
WBC 9.9
Hgb 12.4
Hct 37.2
Plt Count 155
Sodium 139
Potassium 4.5
Chloride 107
Carbon Dioxide 27
BUN 32 H
Creatinine 1.0
Glucose 132 H
Calcium 9.1
Total Bilirubin 0.4
AST 16
ALT 14
Alkaline Phosphatase 49
Vital Signs:
Vital Signs
Temp Pulse Resp BP Pulse Ox
97.6 F 61 18 139/61 97
12/25/24 11:25 12/25/24 11:25 12/25/24 11:25 12/25/24 11:25 12/25/24 11:25
I&O
12/24/24 12/25/24 12/26/24
06:59 06:59 06:59
Intake Total 1460 / 1460 120 / 120
Balance 1460 / 1460 120 / 120
--- NOTE | 2024-12-25 13:32 | CM ---
Addendum entered by Monserrat Gallo 12/25/24 13:46:
[place] and [facility] referrals sent.
Original Note:
Spoke with patient bedside.
Patient interested in [facility] vs skilled rehab at the [facility].
PT recommending acute vs skilled.
Will place referral for [facility].
Plan: Acute vs skilled.
--- NOTE | 2024-12-25 16:15 | PTCARENOTE ---
Pt AAO x3, WEBBER; impulsive at times. Ambulatory to BR/OOB to chair with assist x1/walker, denies weakness/dizziness; unsteady with OOB activity; pt also c/o occ diplopia. Fall prec maintained. VSS. Telemetry:NSR. On room air- pulse ox 94%. Abd
soft, rounded, yasmine PO well. Voids in BR without difficulty. Resting in chair at present. Will continue tomonitor.
[2024-12-25] MEDS: CRESTOR 10 MG PO (18:03)
[2024-12-25] MEDS: COZAAR 25 MG PO (20:04)
[2024-12-25] MEDS: ASPIRIN 325 MG PO (21:42)
[2024-12-26 03:42] VITALS: BP 160/66
[2024-12-26 07:00] VITALS: BP 142/72
[2024-12-26 07:45] LABS: Hematocrit 40.3 % (37.0-47.0); Hemoglobin 13.1 g/dL (12.0-16.0); Mean Corp Hgb Conc. 32.5 g/dL (33.0-37.0); Mean Corpuscular Volume 87.8 fL (81.0-99.0); Nucleated Red Blood Cells % 0 %; Platelet Count 156 10^3/uL (130-400); Red Cell Dist. Width 13.2 % (11.5-14.5)
[2024-12-26] MEDS: SOLU-MEDROL PF 250 MG IV ×2 (08:02→20:11)
[2024-12-26] MEDS: PROTONIX 40 MG PO (08:03)
[2024-12-26] MEDS: TOPROL XL 12.5 MG PO (08:03)
[2024-12-26] MEDS: OSCAL CAL 500 500 MG PO ×2 (08:03→20:10)
[2024-12-26] MEDS: PLAVIX 75 MG PO (08:03)
[2024-12-26] MEDS: IMDUR (EXTENDED RELEASE) 30 MG PO (08:04)
[2024-12-26 08:23] LABS: ALT (SGPT) 16 U/L (0-35); AST (SGOT) 17 U/L (14-36); Albumin 3.6 g/dl (3.5-5.0); Alkaline Phosphatase 52 U/L (38-126); Blood Urea Nitrogen 35 mg/dl (7-17); Calcium 9.5 mg/dl (8.4-10.2); Carbon Dioxide 27 mmol/L (22-30); Chloride 107 mmol/L (98-107); Estimated Creatinine Clearance 36 ml/min; Glucose 117 mg/dl (70-99); Potassium 4.1 mmol/L (3.5-5.1); Sodium 139 mmol/L (135-145); Total Protein 6.0 g/dl (6.3-8.2); eGFR 54.53
--- NOTE | 2024-12-26 09:14 | CON.MR ---
Documented by User: Warren Francis MD, Resident 12/26/24 16:21
Consultation
Consultation Request
Date/Time Consultation Requested: 12/25/24
Date/Time Consultation Performed: 12/26/24
Requesting Provider: Matthew Ochoa
Performing Provider: Dr. Long
Reason for Consultation: CVA
Medical History
-
Chief Complaint: CVA, vertigo
History of Present Illness:
Ms Dubon is a 89-year-old female with a past medical history of hypertension, hyperlipidemia, coronary artery disease, COPD and chronic renal insufficiency who presented to the ED with dizziness. Patient had sudden onset dizziness upon awakening at 3
AM on 12/22 when she rolled to her right side to get out of bed to use the restroom. She states that her symptoms ' woke her up from her sleep.' Patient had associated nausea and 4 episodes of vomiting. Dizziness is worsened when she opens her
eyes. No history of recent illness. She has never had similar symptoms in the past before. She lives in a senior independent living facility ([facility]). She was admitted for vestibular neuritis and non anion gap metabolic acidosis. In the
hospital she was started steriods and acidosis resolved with fluid. On evaluation by neurology she had R facial droop, slightly worsening leg weakness which neurology suspect is a stroke which is independent of the vertigo. Neurology started patient
on statin, ASA and DAPT, CT head was notable for with 4mm chronic lacunar infarct in the head of the left caudate nucleus, CTA of aortic arch severe calcific atherosclerotic plaque in the arch, proximal subclavian on the left is 50 to 70%, right
proximal internal carotid less than 50%, proximal left internal carotid greater than 70%, and patent vertebrals. Cardiology was consulted who thought if there was a stroke suspect atheroembolic rather than cardioembolic. Echo with preserved ejection
fraction and mild to moderate aortic stenosis. No clear cardiac source of emboli. Vascular surgery was consulted carotid stenosis and ordered ultrasound showed less than 50% stenosis bilaterally. Vascular surgery recommended outpatient follow-up.
Past Medical History
Past Medical History: CAD (s/p PCI), COPD, HTN, Hypercholesterolemia and Other (renal insufficiency, )
Past Surgical History: Orthopedic (R hip replacement, R knee replacement ) and Other (R breast lumpectomy )
Family History
Family History: CAD (paternal ) and Cancer (pancreatic (sister) lung (brother))
Social History
Functional Level Premorbidity:
Independent for all activities.
Current Funct Level: Ambulation, Transfer, UE/LE Dressing:
Bed mobility: not tested
transfer: supervision
Ambulation: 50ft with RW and min A
ADLs: supervision for all
Tobacco: Former Smoker (quit at 51)
Alcohol: Occasional
Drug: None
Personal:
Living: Assisted Living ([facility])
Is 24 hour care available: Yes
Number of Floors: 1
# Steps to Enter: 0
# Steps to Second Floor: 0
Potential First Floor Set Up: Yes
Driving: No
Employment: Retired
Occupation: law office
Allergies / Home Medications
Allergy/AdvReac Type Severity Reaction Status Date / Time
Sulfa (Sulfonamide Allergy Rash, Verified 11/20/21 10:35
Antibiotics) vomiting
suture Allergy Rash, Verified 11/20/21 10:35
infection
acetaminophen (From Percocet) AdvReac Nausea / Verified 11/20/21 10:35
Vomiting
oxycodone (From Percocet) AdvReac Nausea / Verified 11/20/21 10:35
Vomiting
Dfigxfo-QLL-CaN Reductase AdvReac Myalgias Verified 11/20/21 10:35
Inhibitor
�Medication �Instructions �Recorded �Confirmed �Last Taken �Type
aspirin 81 mg tablet,delayed 1 tab PO HS Blood clot 09/06/21 12/22/24 12/21/24 History
release prevention/tx
losartan 25 mg tablet 25 tab PO DAILY Blood pressure 09/06/21 12/22/24 12/22/24 History
vitamin B complex 1 tab PO DAILY Supplement 09/06/21 12/22/24 12/21/24 History
acetaminophen 500 mg tablet 500 mg PO DAILYPRN PRN mild pain 12/22/24 12/22/24 12/18/24 History
calcium carbonate (Calcium 600) 600 mg PO DAILY Supplement 12/22/24 12/22/24 12/22/24 History
carboxymethylcellulose sodium 1 % 1 drp BOTH EYES QID Eye Condition 12/22/24 12/22/24 12/22/24 History
eye liquid gel drops
cetirizine 10 mg tablet 10 mg PO HS Allergies 12/22/24 12/22/24 12/21/24 History
cholecalciferol (vitamin D3) 25 25 mcg PO DAILY Supplement 12/22/24 12/22/24 12/22/24 History
mcg (1,000 unit) tablet
isosorbide mononitrate 30 mg 30 mg PO DAILY Blood Pressure 12/22/24 12/22/24 12/22/24 History
tablet,extended release 24 hr
metoprolol succinate 25 mg 12.5 mg PO HS Blood Pressure 12/22/24 12/22/24 12/21/24 History
tablet,extended release 24 hr
rosuvastatin 40 mg tablet 40 mg PO QPM High Cholesterol 12/22/24 12/22/24 12/21/24 History
vit C 250 mg-vit E 90 mg-zinc 40 1 tab PO BID Eye Condition 12/22/24 12/22/24 12/21/24 History
mg-copper 1 [id number]
capsule (PreserVision AREDS-2)
Review Of Systems
-
History Source: Patient
Constitutional: Reports No Symptoms; Denies Fever, Fatigue or Night Sweats
Eye: Reports Blurry Vision and Other (Diplopia when looking to the right)
EENT: Reports No Symptoms; Denies Sore Throat or Runny Nose
Respiratory: Reports No Symptoms; Denies Cough or Trouble Breathing
Cardiac: Reports No Symptoms; Denies Chest Pain, Diaphoresis or Palpitations
Abdomen/GI: Reports No Symptoms; Denies Abdominal Pain, Nausea, Vomiting, Diarrhea or Constipated
: Reports No Symptoms; Denies Dysuria
Musculoskeletal: Reports Joint Pain (Right shoulder)
Integumentary: Reports No Symptoms
Neurological: Reports Dizzy; Denies Headache, Weakness or Numbness
Psych: Reports No Symptoms
Physical Exam
Active Medications
Generic Name Dose Route Start Last Admin
Trade Name Freq PRN Reason Stop Dose Admin
Artificial Tears 1 drops 12/23/24 08:53
Artificial Tears Pf (Refresh) 10 Drop Droperette OPHTH 01/20/25 08:52
QIDPRN PRN
dry eyes
Aspirin 325 mg 12/25/24 22:00 12/25/24 21:42
Aspirin 325 Mg Tablet PO 01/22/25 21:59 325 mg
HS SHERRY Administration
Bisacodyl 10 mg 12/22/24 14:17
Bisacodyl 10 Mg Rectal Suppository RECTAL 01/19/25 14:16
[id number] PRN
constipation
Calcium Carbonate 500 mg 12/22/24 22:00 12/26/24 08:03
Calcium Carbonate 500 Mg Tablet PO 01/19/25 21:59 500 mg
BID SHERRY Administration
Clopidogrel Bisulfate 75 mg 12/23/24 08:00 12/26/24 08:03
Clopidogrel 75 Mg Tablet PO 01/12/25 08:01 75 mg
DAILY SHERRY Administration
Isosorbide Mononitrate 30 mg 12/22/24 14:17 12/26/24 08:04
Isosorbide Mononitrate 30 Mg Extended Release Tablet PO 01/19/25 14:16 30 mg
DAILY SHERRY Administration
Losartan Potassium 25 mg 12/22/24 22:00 12/25/24 20:04
Losartan 25 Mg Tablet PO 01/19/25 21:59 25 mg
HS SHERRY Administration
Meclizine HCl 25 mg 12/24/24 12:07
Meclizine 25 Mg Tablet PO 01/19/25 15:59
Q8 PRN
Vertigo
Methylprednisolone Sodium Succinate 250 mg 12/22/24 16:00 12/26/24 08:02
Methylprednisolone Pf 125 Mg/2 Ml Vial IV 01/19/25 15:59 250 mg
BID SHERRY Administration
Metoprolol Succinate 12.5 mg 12/22/24 15:00 12/26/24 08:03
Metoprolol 12.5 Mg Extended Release Dose (1/2 Of 25 Mg Xl Tablet) PO 01/19/25 14:59 12.5 mg
DAILY SHERRY Administration
Pantoprazole Sodium 40 mg 12/24/24 09:00 12/26/24 08:03
Pantoprazole 40 Mg Delayed Release Tablet PO 01/21/25 08:59 40 mg
DAILY SHERRY Administration
Polyethylene Glycol 17 grams 12/22/24 14:17
Polyethylene Glycol Powder 17 Grams Packet PO 01/19/25 14:16
DAILYPRN PRN
constipation
Rosuvastatin Calcium 10 mg 12/22/24 14:17 12/25/24 18:03
Rosuvastatin (Crestor) 10 Mg Tablet PO 01/19/25 14:16 10 mg
QPM SHERRY Administration
Senna/Docusate Sodium 1 tablet 12/22/24 14:17
Docusate W/Senna (Aurelia-Colace) Tablet PO 01/19/25 14:16
BIDPRN PRN
constipation
Sodium Chloride 0 flush 12/22/24 14:00 12/25/24 09:16
Sodium Chloride 0.9% (Flush) Syringe IV 01/19/25 13:59 1 flush
PER PROTOCOL SHERRY Administration
Vital Signs
Temp Pulse Resp BP Pulse Ox
97.6 F 55 16 142/72 92
12/26/24 07:00 12/26/24 08:03 12/26/24 07:00 12/26/24 08:03 12/26/24 07:00
Height 5 ft 2 in
Actual Weight 67.857 kg
Body Mass Index (BMI) 27.4
Physical Exam
Physical Exam:
General Appearance/Observation: Well-developed, well-nourished individual in no apparent distress.
Pain/Comfort Assessment: Right shoulder, chronic dull achy
Mood/Affect: Appropriate
Integumentary/Operative Site:
Pressure Ulcer: absent
Other Type of Wound: absent
Eyes: Conjunctiva/Lids: normal Pupils: pupils equal round and reactive to light and Accommodation
Ears/Nose/Throat: oral mucosa moist, throat clear. Lips/Teeth/Gums: normal
Neck: No muscle spasm or tenderness
Cardiovascular: Heart: regular rate regular rhythm, systolic murmur over aortic region, no carotid bruit
Pulses: dorsalis pedis 2+ bilaterally
Respiratory: Respiratory Effort/Chest Expansion: normal Auscultation: Clear to auscultation bilaterally
Gastrointestinal: abdomen not tender, no distension, normal abdominal bowel sounds
Genitourinary: No Carpenter
Rectal Exam: Deferred
Extremities: Edema: None Cyanosis: None Trophic changes: None
Neurology Exam:
Orientation: Alert, Oriented to self, Time, Place
Memory: Intact immediately and at 3 minutes
Higher cortical function
Speech: Intact
Repetition: Intact
Comprehension: Intact
Two step command: Intact
Naming: Intact
Cranial Nerves:
CNII: Pupillary light reflex: Intact Visual Field: Intact
CN III, IV, : Extraocular muscles: Intact
CN V: Facial Sensation at Forehead: Intact , Maxilla: Intact, Mandible: Intact
CN VII: Facial movement: Mild weakness right lower face with smile
CN VIII: Hearing: Normal
CN IX/X: Speech & swallow: Normal, Position of Uvula: Midline
CN XI: Shoulder shrug: Symmetric, slightly weaker on right shoulder
CN XII: Tongue protrusion: Midline
Sensory:
Light touch: Intact in bilateral upper and lower extremities
Pinprick: Deferred
Proprioception: Intact bilaterally
Temperature: Deferred
Reflexes:
Biceps: 0 bilaterally
Brachioradialis: 0 bilaterally
Triceps: 0 bilaterally
Patellar: 0 bilaterally
Achilles: 0 bilaterally
Babinski: Downgoing bilaterally
Clonus: None
Erasto: Negative bilaterally
Cerebellar: Dysmetria/Ataxia: None
Musculoskeletal:
Motor: (Manual muscle scale 0-5)
Muscle SA EF WE EE FF FA HF KE DF EHL PF
Right 4 4 5 5 5 5 4 4 5 5 5
Left 5 5 5 5 5 5 5 5 5 5 5
Tone: Normal in all extremities
Range of Motion: Passively within normal limits in all extremities
Lab Results
12/26/24 07:19
12/26/24 07:19
WBC 10.1 10^3/uL (4.8-10.8) 12/26/24 07:19
Hgb 13.1 g/dL (12.0-16.0) 12/26/24 07:19
Hct 40.3 % (37.0-47.0) 12/26/24 07:19
MCV 87.8 fL (81.0-99.0) 12/26/24 07:19
Plt Count 156 10^3/uL (130-400) 12/26/24 07:19
Sodium 139 mmol/L (135-145) 12/26/24 07:19
Potassium 4.1 mmol/L (3.5-5.1) 12/26/24 07:19
Chloride 107 mmol/L (98-107) 12/26/24 07:19
Carbon Dioxide 27 mmol/L (22-30) 12/26/24 07:19
BUN 35 mg/dl (7-17) H 12/26/24 07:19
Creatinine 1.0 mg/dL (0.6-1.0) 12/26/24 07:19
eGFR 54.53 12/26/24 07:19
Glucose 117 mg/dl (70-99) H 12/26/24 07:19
Calcium 9.5 mg/dl (8.4-10.2) 12/26/24 07:19
Total Bilirubin 0.6 mg/dl (0.2-1.3) 12/26/24 07:19
AST 17 U/L (14-36) 12/26/24 07:19
ALT 16 U/L (0-35) 12/26/24 07:19
Alkaline Phosphatase 52 U/L (38-126) 12/26/24 07:19
Total Protein 6.0 g/dl (6.3-8.2) L 12/26/24 07:19
Albumin 3.6 g/dl (3.5-5.0) 12/26/24 07:19
Diagnostic Results
As per HPI.
Comorbidities / Impairment Group
Comorbidities:
Impairment Group:
Assessment / Plan
Assessment
Ms Dubon is a 89-year-old female with a past medical history of hypertension, hyperlipidemia, coronary artery disease, COPD and chronic renal insufficiency who presented with dizziness. She was admitted for vestibular neuritis and non anion gap
metabolic acidosis. In the hospital she was started steroids and acidosis resolved with fluid. On evaluation by neurology she had R facial droop, slightly worsening leg weakness which neurology suspect is a stroke which is independent of the
vertigo. Etiology of the stroke suspect atheroembolic rather than cardioembolic.
Plan
PM&R PT/OT to increase independence with ADLs, improve balance, coordination, endurance, strength, mobility, community reintegration, decreased burden of care on others and family education.
CVA: Secondary prophylaxis with aspirin, statin, and blood pressure control (SBP less than 180 and diastolic less than 100 to participate with therapy for ischemic stroke). Continue to monitor neurologic status.
Vertigo: continue steroid treatment for neuritis per neurology
HTN: continue medications, monitor closely
HLD: Statin
Skin: monitor for pressure sores/rashes/lesions.
Pain: acetaminophen or oxycodone as needed.
Bowel: As needed Colace and Senna, PRN bisacodyl.
GI Prophylaxis: Pantoprazole
DVT Prophylaxis: Note chemoprophylaxis
Safety: Continue to reinforce assistance with all transfers.
Code Status: DNR
Dispo: SNF rehab.
Functional and Medical Goals: Modified Independent with ADL�s, ambulation, transfers
Summary
-
Things that must be addressed in Hospital prior to discharge:
Patient must be stable on oral pain medications.
Blood pressure must be less than 180 systolic and 100 diastolic for 24 hours before being stable for transfer to SNF/acute rehab.
Please give blood pressure parameters.
Discharge Destination: Skilled rehab
Summary of recommendations:
- Discharge Destination: skilled rehab
PT/OT to increase independence with ADLs, improve balance, coordination, endurance, strength, mobility, community reintegration, decreased burden of care on others and family education.
Will sign off, re-consult if needed.
Thank you for allowing me to care for your patient. Please contact me with any questions or concerns.
Comments
-
This note was dictated using a voice recognition system. Please excuse any typographical errors from industrial gas production operator. If you believe there are any discrepancies, please notify our office.

Documented by User: David Long MD 12/26/24 23:24
Medical History
-
History of Present Illness:
Rachel Dubon is an 89-year-old female with a past medical history of hypertension, hyperlipidemia, coronary artery disease, COPD and chronic renal insufficiency who presented to the ED with dizziness. Patient had sudden onset dizziness upon awakening
at 3 AM on 12/22 when she rolled to her right side to get out of bed to use the restroom. She states that her symptoms ' woke her up from her sleep.' Patient had associated nausea and 4 episodes of vomiting. Dizziness is worsened when she opens her
eyes. No history of recent illness. She has never had similar symptoms in the past before. She lives in a senior independent living facility ([facility]). She was admitted for vestibular neuritis and non anion gap metabolic acidosis. In the
hospital she was started steroids and acidosis resolved with fluid. On evaluation by neurology she had R facial droop, slightly worsening leg weakness which neurology suspect is a stroke which is independent of the vertigo. Neurology started patient
on statin, ASA and DAPT, CT head was notable for with 4mm chronic lacunar infarct in the head of the left caudate nucleus, CTA of aortic arch severe calcific atherosclerotic plaque in the arch, proximal subclavian on the left is 50 to 70%, right
proximal internal carotid less than 50%, proximal left internal carotid greater than 70%, and patent vertebrals. Cardiology was consulted who thought if there was a stroke suspect atheroembolic rather than cardioembolic. Echo with preserved ejection
fraction and mild to moderate aortic stenosis. No clear cardiac source of emboli. Vascular surgery was consulted carotid stenosis and ordered ultrasound showed less than 50% stenosis bilaterally. Vascular surgery recommended outpatient follow-up.
She is overall feeling better. Still has some balance concerns with walking.
Physical Exam
Physical Exam
Physical Exam:
General Appearance/Observation: Well-developed, well-nourished female in no apparent distress.
Pain/Comfort Assessment: Right shoulder, chronic dull achy
Mood/Affect: Appropriate
Integumentary/Operative Site: No lesions noted during exam
Eyes: Conjunctiva/Lids: normal Pupils: pupils equal round and reactive to light and Accommodation
Ears/Nose/Throat: oral mucosa moist, throat clear. Lips/Teeth/Gums: normal
Neck: No muscle spasm or tenderness
Cardiovascular: Heart: regular rate regular rhythm, systolic murmur over aortic region, no carotid bruit
Pulses: dorsalis pedis 2+ bilaterally
Respiratory: Respiratory Effort/Chest Expansion: normal Auscultation: Clear to auscultation bilaterally
Gastrointestinal: abdomen not tender, no distension, normal abdominal bowel sounds
Genitourinary: No Carpenter
Rectal Exam: Deferred
Extremities: Edema: None Cyanosis: None Trophic changes: None
Neurology Exam:
Orientation: Alert, Oriented to self, Time, Place
Memory: Intact for recent medical concerns
Repetition: Intact
Comprehension: Intact
Two step command: Intact
Naming: Intact
Cranial Nerves:
CNII: Pupillary light reflex: Intact Visual Field: Intact
CN III, IV, : Extraocular muscles: Intact
CN V: Facial Sensation at Forehead: Intact , Maxilla: Intact, Mandible: Intact
CN VII: Facial movement: Mild weakness right lower face with smile
CN VIII: Hearing: Normal
CN IX/X: Speech & swallow: Normal, Position of Uvula: Midline
CN XI: Shoulder shrug: slightly weaker on right shoulder
CN XII: Tongue protrusion: Midline
Sensory:
Light touch: Intact in bilateral upper and lower extremities
Pinprick: Deferred
Proprioception: Intact bilaterally
Temperature: Deferred
Reflexes:
Biceps: 0 bilaterally
Brachioradialis: 0 bilaterally
Triceps: 0 bilaterally
Patellar: 0 bilaterally
Achilles: 0 bilaterally
Babinski: Downgoing bilaterally
Clonus: None
Erasto: Negative bilaterally
Cerebellar: Dysmetria/Ataxia: None
Musculoskeletal:Motor: (Manual muscle scale 0-5)
Muscle SA EF WE EE FF FA HF KE DF EHL PF
Right 4 4+ 5 5 5 4 5 5 5 5
Left 5 5 5 5 5 5 5 5 5 5
Tone: Normal in all extremities
Range of Motion: Passively within normal limits in all extremities
Assessment / Plan
Assessment
89-year-old right-handed F PMH (hypertension, hyperlipidemia, coronary artery disease, COPD and chronic renal insufficiency) with dizziness, R facial droop, slightly worsening leg weakness and diagnosed by neurology with vestibular neuritis and
stroke suspected to be from atheroembolic rather than cardioembolic etiology��resulting in ADL and ambulatory dysfunction.
Plan
PM&R PT/OT to increase independence with ADLs, improve balance, coordination, endurance, strength, mobility, community reintegration, decreased burden of care on others and family education.
CVA: Secondary prophylaxis with aspirin/Plavix per neurology, statin, and blood pressure control (SBP less than 180 and diastolic less than 100 to participate with therapy for ischemic stroke). Continue to monitor neurologic status.
Vertigo: steroid treatment for neuritis per neurology
HTN: Imdur 30 mg daily, metoprolol 12.5 mg daily losartan 25 mg at night, monitor closely
HLD: Statin
CAD: Metoprolol and statin
Skin: monitor for pressure sores/rashes/lesions.
Pain: acetaminophen as needed.
Bowel: Colace and Senna, PRN bisacodyl.
GI Prophylaxis: Pantoprazole
DVT Prophylaxis: Mechanical and suggest chemoprophylaxis
Safety: Continue to reinforce assistance with all transfers.
Code Status: DNR per chart
Dispo: Patient still requiring min assist for ambulation but is supervision for all other activities. Would benefit from a course of therapy at detention facility prior to returning to independent living at [facility].
Functional and Medical Goals: Modified Independent with ADL�s, ambulation, transfers
Attending Statement: I performed a history and examined the patient today.� I reviewed the care plan with therapy, nursing, and the resident.� I agree with the history and ROS above as modified.� The physical exam and plan documented reflects my
examination and plan.��A total of 60 minutes were spent with the patient preparing for the evaluation, obtaining history, performing examination and evaluation, counseling, data review, case management, care coordination, blood bank order control clerk, and EMR
documentation.
Summary
-
Summary of recommendations:
- Discharge Destination: skilled rehab
PT/OT to increase independence with ADLs, improve balance, coordination, endurance, strength, mobility, community reintegration, decreased burden of care on others and family education.
Will sign off, re-consult if needed.
Thank you for allowing me to care for your patient. Please contact me with any questions or concerns.
[2024-12-26 11:30] VITALS: BP 130/58
--- NOTE | 2024-12-26 12:57 | PN.CDI ---
CDI
- -
CDI:
Physician Documentation Request
Admit Date: 12/24/24 08:05
Dear Doctor Chacorta,
Please review the following and provide your response in the progress notes.
Clinical Indicators:
- Patient admit for vertigo due to left vestibular neuritis and CVA
- 12/25 PN indicates pmh chronic renal insufficiency
- Labs as follows:
Laboratory Tests
12/22/24 12/24/24 12/26/24
07:18 07:14 07:19
Creatinine 1.0 1.0 1.0
eGFR 54.53 54.53 54.53
Please clarify the accurate stage that represents the patient's renal status:
Stages of Chronic Kidney Disease*
Level Description GFR
G1 Normal or High >90
G2 Mildly decreased 60-89
G3a Mildly to moderately decreased 45-59
G3b Moderately to severely decreased 30-44
G4 Severely decreased 15-29
G5 Kidney failure <15
Use of terms such as suspected, likely, concern for, or probable (associated with a specific diagnosis that is being evaluated, monitored, or treated as if it exists) are acceptable and can be coded in the inpatient setting, when documented at the
time of discharge.
Thank you,
Matt Sims RN
CDI Specialist
Please use your independent medical judgment in providing your response.
*Source: Kidney Disease: Improving Global Outcomes (KDIGO) 2012
--- NOTE | 2024-12-26 13:32 | W.PN.HOSP.TC ---
Today's Communication/Plan
-
Monitor vitals
See plan
Discharge planning
Continue with aspirin and Plavix
PT/OT
Assessment / Plan
Assessment / Plan
89-year-old female with a past medical history of hypertension, hyperlipidemia, coronary artery disease, COPD and chronic renal insufficiency who presents to the ED with dizziness. Patient had sudden onset dizziness upon awakening at 3 AM 12/22/24
when she rolled to her right side to get out of bed to use the restroom. She states that her symptoms ' woke her up from her sleep.' Patient had associated nausea and 4 episodes of vomiting. Dizziness is worsened when she opens her eyes.
Assessment/plan:
#Acute vertigo due to left vestibular neuritis
# Stroke
#Metabolic acidosis, likely due to vomiting, resolved
�Concern for central etiology: Neurology was consulted.
�Neurology saw patient, likely left vestibular neuritis, solumedrol 250 BID started. Total treatment 5 days of steroid per neuro. last day 12/26
�Patient has new onset right-sided facial droop, right-sided leg/arm weakness-concern for stroke. Discussed with neurology, they are concerned about carotid plaque. Will treat as large vessel disease and recommending 90 days of Plavix and full
dose aspirin. After 90 days Plavix will be discontinued and patient needs to continue full dose aspirin indefinitely.
Per neurology, no MRI needed. Patient also refused MRI
CT with 4mm chronic lacunar infarct in the head of the left caudate nucleus
�PT following: Recommend acute rehab vs [facility]. Patient is interested in acute rehab. Awaiting evaluation
�None anion gap metabolic acidosis, resolved after IV fluids with bicarbonate. will monitor.
CT with severe left proximal carotid stenosis. Ultrasound shows less than 50% stenosis bilaterally. Vascular surgery recommended outpatient follow-up. Given large vessel disease neurology recommending 90 days of Plavix
cardiology also consulted
#Coronary artery disease, status post stents
#Hyperlipidemia with statin intolerance, history of myalgias
#Essential hypertension
�Continue aspirin, losartan 25 Mg daily, metoprolol 12.5 Mg daily, isosorbide mononitrate 30 mg.
suspect CKD stage 2
#History of breast cancer status postlumpectomy 2012
#Degenerative joint disease
DVT prophylaxis: SCDs
CODE STATUS: DNR
General: Well Developed, Well Nourished, No Apparent Distress, Comfortable and Conversant
HEENT: Normocephalic, Atraumatic and Moist Mucous Membranes
Respiratory: Clear to Auscultation
Cardiac: Regular Rhythm and S1/S2
GI: Soft, Nontender, Nondistended, Normal Bowel Sounds
Neuro: Awake, AO x 3 and Nonfocal/Grossly Intact
Psych: Calm
Anticipated Discharge: Within 24 hours
Subjective/Interval History
-
Date of Service: December 26, 2024
denies pain
Objective Data
-
Labs:
Laboratory Results
12/26/24
07:19
WBC 10.1
Hgb 13.1
Hct 40.3
Plt Count 156
Sodium 139
Potassium 4.1
Chloride 107
Carbon Dioxide 27
BUN 35 H
Creatinine 1.0
Glucose 117 H
Calcium 9.5
Total Bilirubin 0.6
AST 17
ALT 16
Alkaline Phosphatase 52
Vital Signs:
Vital Signs
Temp Pulse Resp BP Pulse Ox
97.7 F 62 18 130/58 97
12/26/24 11:30 12/26/24 11:30 12/26/24 11:30 12/26/24 11:30 12/26/24 11:30
I&O
12/25/24 12/26/24 12/27/24
06:59 06:59 06:59
Intake Total 120 / 120 1220 / 1220
Balance 120 / 120 1220 / 1220
--- NOTE | 2024-12-26 14:45 | CM ---
Patient seen at bedside with son Omar
Discussed no beds available at [facility] this week per Ly
Physiatry consulted-await
discussed additional SNF referrals if not Marie-she requested [facility] to be entered in [facility]
Referrals to [facility]
no preauth needed
PLAN: Acute vs. SNF, await physiatry consult
[2024-12-26 15:00] VITALS: BP 153/68
[2024-12-26] MEDS: CRESTOR 40 MG PO (17:11)
[2024-12-26 20:08] VITALS: BP 154/86
[2024-12-26] MEDS: COZAAR 25 MG PO (20:10)
[2024-12-26] MEDS: ASPIRIN 325 MG PO (20:11)
--- NOTE | 2024-12-26 21:04 | W.PN.UPDATE ---
Update Note
Progress Note Update
patient refusing sennakot and Dulcolax and requesting Colace, last BM 12/25 but feels constipated, will order Colace 100mg POx1
[2024-12-26] MEDS: COLACE 100 MG PO (21:21)
[2024-12-26 23:26] VITALS: BP 148/58
[2024-12-27 03:29] VITALS: BP 152/62
[2024-12-27 07:21] VITALS: BP 152/66
[2024-12-27] MEDS: SOLU-MEDROL PF 250 MG IV (08:26)
[2024-12-27] MEDS: PROTONIX 40 MG PO (08:26)
[2024-12-27] MEDS: IMDUR (EXTENDED RELEASE) 30 MG PO (08:26)
[2024-12-27] MEDS: TOPROL XL 12.5 MG PO (08:26)
[2024-12-27] MEDS: OSCAL CAL 500 500 MG PO (08:26)
[2024-12-27] MEDS: PLAVIX 75 MG PO (08:26)
[2024-12-27 08:43] LABS: Hematocrit 40.8 % (37.0-47.0); Hemoglobin 13.5 g/dL (12.0-16.0); Mean Corp Hgb Conc. 33.1 g/dL (33.0-37.0); Mean Corpuscular Volume 87.4 fL (81.0-99.0); Nucleated Red Blood Cells % 0 %; Platelet Count 164 10^3/uL (130-400); Red Cell Dist. Width 13.2 % (11.5-14.5)
[2024-12-27 08:54] LABS: ALT (SGPT) 19 U/L (0-35); AST (SGOT) 18 U/L (14-36); Albumin 3.5 g/dl (3.5-5.0); Alkaline Phosphatase 49 U/L (38-126); Blood Urea Nitrogen 36 mg/dl (7-17); Calcium 9.1 mg/dl (8.4-10.2); Carbon Dioxide 26 mmol/L (22-30); Chloride 107 mmol/L (98-107); Estimated Creatinine Clearance 40 ml/min; Glucose 115 mg/dl (70-99); Potassium 4.5 mmol/L (3.5-5.1); Sodium 138 mmol/L (135-145); Total Protein 5.8 g/dl (6.3-8.2); eGFR > 60.00
[2024-12-27 11:25] VITALS: BP 132/60; PULSE 60; O2SAT 97
--- NOTE | 2024-12-27 11:34 | W.PN.HOSP.TC ---
Addendum entered and electronically signed by Matthew Whatley MD 12/27/24 12:51:
Time of discharge 38 minutes
Original Note:
Today's Communication/Plan
-
Monitor vital signs
see plan
DC further steroids
Continue with aspirin and Plavix
Discharge today fast placement, egg caser aware
Assessment / Plan
Assessment / Plan
89-year-old female with a past medical history of hypertension, hyperlipidemia, coronary artery disease, COPD and chronic renal insufficiency who presents to the ED with dizziness. Patient had sudden onset dizziness upon awakening at 3 AM 12/22/24
when she rolled to her right side to get out of bed to use the restroom. She states that her symptoms ' woke her up from her sleep.' Patient had associated nausea and 4 episodes of vomiting. Dizziness is worsened when she opens her eyes.
Assessment/plan:
#Acute vertigo due to left vestibular neuritis
# Stroke
#Metabolic acidosis, likely due to vomiting, resolved
�Concern for central etiology: Neurology was consulted.
�Neurology saw patient, likely left vestibular neuritis, solumedrol 250 BID started. Total treatment 5 days of steroid per neuro. last day 12/26
�Patient has new onset right-sided facial droop, right-sided leg/arm weakness-concern for stroke. Discussed with neurology, they are concerned about carotid plaque. Will treat as large vessel disease and recommending 90 days of Plavix and full
dose aspirin. After 90 days Plavix will be discontinued and patient needs to continue full dose aspirin indefinitely.
Per neurology, no MRI needed. Patient also refused MRI
CT with 4mm chronic lacunar infarct in the head of the left caudate nucleus
�PT following: Recommend acute rehab vs [facility]. Patient is interested in acute rehab. Awaiting evaluation
�None anion gap metabolic acidosis, resolved after IV fluids with bicarbonate. will monitor.
CT with severe left proximal carotid stenosis. Ultrasound shows less than 50% stenosis bilaterally. Vascular surgery recommended outpatient follow-up. Given large vessel disease neurology recommending 90 days of Plavix
cardiology also consulted
#Coronary artery disease, status post stents
#Hyperlipidemia with statin intolerance, history of myalgias
#Essential hypertension
�Continue aspirin, losartan 25 Mg daily, metoprolol 12.5 Mg daily, isosorbide mononitrate 30 mg.
suspect CKD stage 2
#History of breast cancer status postlumpectomy 2013
#Degenerative joint disease
DVT prophylaxis: SCDs
CODE STATUS: DNR
General: Well Developed, Well Nourished, No Apparent Distress, Comfortable and Conversant
HEENT: Normocephalic, Atraumatic and Moist Mucous Membranes
Respiratory: Clear to Auscultation
Cardiac: Regular Rhythm and S1/S2
GI: Soft, Nontender, Nondistended, Normal Bowel Sounds
Neuro: Awake, AO x 3 and Nonfocal/Grossly Intact
Psych: Calm
Anticipated Discharge: Today
Subjective/Interval History
-
Date of Service: December 27, 2024
Denies pain
Objective Data
-
Labs:
Laboratory Results
12/27/24
07:58
WBC 9.1
Hgb 13.5
Hct 40.8
Plt Count 164
Sodium 138
Potassium 4.5
Chloride 107
Carbon Dioxide 26
BUN 36 H
Creatinine 0.9
Glucose 115 H
Calcium 9.1
Total Bilirubin 0.7
AST 18
ALT 19
Alkaline Phosphatase 49
Vital Signs:
Vital Signs
Temp Pulse Resp BP Pulse Ox
97.5 F 49 16 152/66 94
12/27/24 07:21 12/27/24 08:26 12/27/24 07:21 12/27/24 08:26 12/27/24 11:11
I&O
12/26/24 12/27/24 12/28/24
06:59 06:59 06:59
Intake Total 1220 / 1220 660 / 660
Balance 1220 / 1220 660 / 660
--- NOTE | 2024-12-27 11:43 | W.DCSUMMARY ---
Discharge Summary
Discharge Data
Date of Admission: 12/24/24
Date of Discharge: 12/27/24
-
Pending Results: No
Hospital Course
89-year-old female with past medical history of hypertension, hyperlipidemia, CAD, COPD, CKD came to the hospital with acute vertigo. He was determined that patient vertigo is likely secondary to vestibular neuritis. Neurology started patient on
IV steroids which patient finished prior to discharge. Patient also had new facial droop which was suspected was secondary to TIA. CTA was done which showed carotid disease. Per neurology MRI was not needed and patient also refused MRI due to
metal in her body. Vascular surgery was also consulted and had a carotid ultrasound which did show carotid stenosis however it was less than 50%. Vascular surgery recommended patient to follow-up with them closely outpatient. Given large vessel
disease, neurology recommended full dose aspirin and Plavix for total 90 days and then stop Plavix and continue full dose aspirin indefinitely. Patient was also evaluated by physical therapy and was recommended rehab. Once her symptoms continue to
improve, she was then discharged to rehab with instructions to follow-up with all her physicians outpatient.
Discharge Plan
-
Patient Disposition: Group Home/SNF
Discharge Diagnosis/Procedures: Vestibular neuritis
Suspect TIA, large vessel disease
Carotid stenosis
Condition: Fair
Diet: As tolerated
Activity: As tolerated
Driving Restrictions: As prior to admission
Others Tests: Your repeat carotid ultrasound (which should be obtained prior to your follow-up vascular appointment in June,) is scheduled on 05/31/2025 at 1 PM here at [facility]
Activity Restrictions/Additional Instructions:
Plavix was started on 12/23/2024. Continue Plavix along with full dose aspirin for 90 days then discontinue Plavix and continue full dose aspirin indefinitely per neurology recommendation.
Referrals:
Dave Carpenter III, MD [Active, Vascular Surgery] - 06/05/25 11:30 am
Kaushik Sams MD [Active, Neurology] - in three to four weeks
Matias Cruz MD [Active, Cardiology] - 01/28/25 11:00 am
Referral Note: You have an appointment to see Dr. Cruz at the [facility] office on 01/28/2025 at 11 AM. Please call [phone] if you need to reschedule.
Yolanda Braswell, [Family Provider, Internal Medicine] - in less than 1 week
Prescriptions:
New
polyethylene glycol 3350 17 gram Powder In Packet
17 g PO DAILYPRN PRN (Reason: constipation) Qty: 0 0RF
aspirin 325 mg Tablet
325 mg PO HS Qty: 0 0RF
sennosides-docusate sodium 8.6-50 mg Tablet
1 tab PO BIDPRN PRN (Reason: constipation) Qty: 0 0RF
clopidogrel 75 mg Tablet
75 mg PO DAILY Qty: 0 0RF
calcium carbonate 500 mg calcium (1,250 mg) Tablet
500 mg PO BID Qty: 0 0RF
pantoprazole 40 mg Tablet,Delayed Release (Dr/Ec)
40 mg PO DAILY Qty: 0 0RF
metoprolol succinate 25 mg Tablet Extended Release 24 Hr
12.5 mg PO DAILY Qty: 0 0RF
Continued
vitamin B complex 1 TAB tablet
1 tab PO DAILY
Rx Instructions:
takes with a meal
calcium carbonate [Calcium 600] 600 mg calcium (1,500 mg) Tablet
600 mg PO DAILY
rosuvastatin 40 mg tablet
40 mg PO QPM
cholecalciferol (vitamin D3) 25 mcg (1,000 unit) Tablet
25 mcg PO DAILY
cetirizine 10 mg tablet
10 mg PO HS
isosorbide mononitrate 30 mg tablet extended release 24 hr
30 mg PO DAILY
acetaminophen 500 mg Tablet
500 mg PO DAILYPRN PRN (Reason: mild pain)
carboxymethylcellulose sodium 1 % Drops, Liquid Gel
1 drp BOTH EYES QID
PreserVision AREDS-2 250-90-40-1 mg Capsule
1 tab PO BID
Rx Instructions:
taken with meals
Changed
losartan 25 MG tablet
25 tab PO HS Qty: 0 0RF
Discontinued
aspirin 81 MG tablet,delayed release (DR/EC)
1 tab PO HS
metoprolol succinate 25 mg tablet extended release 24 hr
12.5 mg PO HS
Discharge Orders:
Discharge Patient (As Directed); Ordered 12/27/24
Ordered By: Matthew Whatley
Discharge Date and Time
Print Language: RUSSIAN
[2024-12-27 11:45] VITALS: BP 136/59
[2024-12-27] MEDS: SENOKOT-S 1 TABLET PO (11:54)
--- NOTE | 2024-12-27 12:22 | CM ---
Addendum entered by Luis E Yates 12/27/24 13:11:
Received call from [facility], can accept patient today. Requested [facility], made hospitalist aware
Updated patient, son will transport to [facility]
IMM verbally reviewed, copy provided, copy on chart
[facility]
Report: [phone]

Original Note:
Chart reviewed. Patient does not qualify for acute rehab per PM&R assessment. SNF referrals submitted yesterday, [facility] accepted.
Updated patient bedside, aware of not being appropriate for acute. Patient agreeable to [facility] if they have an available bed today
[facility] left message regarding bed availability
Updated hospitalist on awaiting call back
Plan: [facility], awaiting confirmation on bed today
[2024-12-27 13:29] LABS: COVID-19 Antigen Negative (Negative)
[2024-12-27 15:13] VITALS: BP 116/52
== END 2024-12-27 16:56 | DRG 68 ==
LOC: 4 EAST ACU 08:05
PROVIDERS: ADMITTING PHYSICIAN Internal Medicine; ATTENDING PHYSICIAN Internal Medicine; CONSULT PHYSICIAN Internal Medicine Cardiovascular Disease; CONSULT PHYSICIAN Physical Medicine & Rehabilitation; CONSULT PHYSICIAN Psychiatry & Neurology Clinical Neurophysiology; EMERGENCY PHYSICIAN Emergency Medicine; FAMILY PHYSICIAN Internal Medicine; OTHER PHYSICIAN Nurse Practitioner
DX: I65.23 Occlusion and stenosis of bilateral carotid arteries (principal); E87.20 Acidosis, unspecified; G81.91 Hemiplegia, unspecified affecting right dominant side; E27.40 Unspecified adrenocortical insufficiency; I25.10 Atherosclerotic heart disease of native coronary artery without angina pectoris; Z66 Do not resuscitate; I12.9 Hypertensive chronic kidney disease with stage 1 through stage 4 chronic kidney disease, or unspecified chronic kidney disease; J44.9 Chronic obstructive pulmonary disease, unspecified; E78.00 Pure hypercholesterolemia, unspecified; R29.810 Facial weakness; H81.22 Vestibular neuronitis, left ear; N18.2 Chronic kidney disease, stage 2 (mild); H81.392 Other peripheral vertigo, left ear; Z95.5 Presence of coronary angioplasty implant and graft; Z85.3 Personal history of malignant neoplasm of breast; Z96.651 Presence of right artificial knee joint; Z96.641 Presence of right artificial hip joint; Z87.891 Personal history of nicotine dependence; Z88.2 Allergy status to sulfonamides; Z88.5 Allergy status to narcotic agent; Z79.899 Other long term (current) drug therapy; Z79.82 Long term (current) use of aspirin; Z79.02 Long term (current) use of antithrombotics/antiplatelets; Z11.52 Encounter for screening for COVID-19
CPT/HCPCS: 70450; 70496; 70498; 80053; 80061; 85025; 87811; 93005; 93306; 93880; 96361; 96374; 96375; 97116; 97163; 97167; 97530; 97535; 99285; J7030; Q9967